=== PATIENT | female | born 1940 | race Caucasian/White ===

== ENCOUNTER 2016-06-28 11:26 | Emergency (ER) | payer OTHER ==
[~2016-06-28] VITALS: Ht 160 cm; Wt 90.7 kg
[~2016-06-28 11:26] MED LIST: BISOPROLOL-HCT1 EACH PO; COUMADIN5 M2 PO; CRESTOR10 M1 PO; CYMBALTA60 M1 PO; FERROUS SULFAT325 M3 PO; HYDROCODON-ACE1 EAC2 PO; LEVOTHYROXINE112 MCG PO; LOSARTAN-HCTZ1 EACH PO; LUMIGAN2.5 ML OPH; PRADAXA150 M1 PO; REMERON15 M2 PO; VOLTAREN100 GM TOP
--- NOTE | 2016-06-28 11:54 | ED NECK/BACK PAIN COMPLAINT ---
History of Present Illness General Chief Complaint: Low Back Pain/Injury Stated Complaint: BACK PAIN Source: patient, old records Exam Limitations: no limitations Vital Signs & Intake/Output Vital Signs & Intake/Output Vital Signs Date Time Temp Pulse Resp B/P Pulse O2 O2 Flow FiO2 Ox Delivery Rate 06/28 1142 Room Air 06/28 1130 95.8 111 20 123/78 96 Room Air Allergies Coded Allergies: NO KNOWN ALLERGIES (02/03/16) Reconcile Medications Bimatoprost (Lumigan) 2.5 ML DROPS 1 GTT OPH QPM BOTH EYES - GLAUCOMA ( Reported) Bisoprolol Fumarate/Hctz (Bisoprolol-Hctz 2.5-6.25 MG Tb) 1 EACH TABLET 1 TAB PO DAILY BP (Reported) Clonazepam 0.5 MG TABLET 1 TAB PO BID ANXIETY (Reported) Dabigatran Etexilate Mesylate (Pradaxa 150 MG) 150 MG CAPSULE 1 CAP PO BID BLOOD THINNER (Reported) Duloxetine HCl (Cymbalta) 60 MG CAPSULE.DR 1 CAP PO DAILY DEPRESSION ( Reported) Ferrous Sulfate 325 MG TABLET 1 TAB PO DAILY SUPPLEMENT (Reported) Hydrocodone/Acetaminophen (Hydrocodon-Acetaminophen 5-325) 1 EACH TABLET 1 TAB PO PRN PAIN (Reported) Levothyroxine Sodium 112 MCG TABLET 1 TAB PO DAILY THYROID (Reported) Losartan/Hydrochlorothiazide (Losartan-Hctz 100-12.5 MG Tab) 1 EACH TABLET 1 TAB PO QPM BP (Reported) Mirtazapine (Remeron) 15 MG TABLET 1 TAB PO DAILY UNKNOWN (Reported) Prednisone 10 MG TABLET 0 PO DAILY INFLAMMATION/BACK PAIN 4 TABS PO DAILY ON DAY 1, THEN DECREASE BY 1 TAB(10MG) DAILY FOR 4 DAYS. Rosuvastatin Calcium (Crestor) 10 MG TABLET 1 TAB PO DAILY CHOLESTEROL ( Reported) Warfarin Sodium (Coumadin) 5 MG TABLET 1 TAB PO DAILY anticoagulation goal inr 2-3 Triage Note: PT TO ED C/O LOW BACK PAIN SINCE SATURDAY. WORSE LAST NIGHT PER PT. TOOK VICODIN AT 1000 TODAY. HAS BEEN USING HEAT WITH SOME RELIEF. DENIES INJURY/FALL. PT STATES PAIN RADIATES TO B/L HIPS. Triage Nurses Notes Reviewed? yes HPI: Patient is a 76 year old female with history of chronic back pain, presents complaining of severe back pain onset yesterday evening. Patient reports that she was sleeping, the pain awoke her from sleep. Pain is a sharp pain, feels different from her previous chronic pain. Pain was severe at home, took a Vicodin and pain is currently 3/10. Pain briefly radiated down her right lower extremity last night, none since the 1 episode. denies any recent trauma or known inciting injury, incontinence, numbness, abdominal pain, fevers, rashes. (IVIS JAFFE) Past History Travel History Traveled to [place] past 21 day No Medical History Any Pertinent Medical History? 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 No (IVIS JAFFE) Review of Systems Review of Systems Constitutional: Reports: no symptoms. Respiratory: Reports: no symptoms. Cardiovascular: Denies: chest pain. Gastrointestinal/Abdominal: Denies: abdominal pain. Musculoskeletal: Reports: see HPI, back pain. Skin: Reports: no symptoms. Neurological/Psychological: Denies: headache, numbness, paresthesia. (IVIS JAFFE) Physical Exam Physical Exam General Appearance: well developed/nourished, alert, awake Head: atraumatic, normal appearance Eyes: Bilateral: normal appearance. Ears, Nose, Throat, Mouth: hearing grossly normal Neck: normal inspection, supple, full range of motion, no midline tenderness Respiratory: normal breath sounds, chest non-tender, no respiratory distress, lungs clear Cardiovascular: regular rate/rhythm Peripheral Pulses: 2+ dorsalis pedis (R), 2+ dorsalis pedis (L) Gastrointestinal: soft, non-tender Back: normal inspection, normal range of motion, midline lumbar and bilateral paraspinal tenderness Extremities: non-tender, normal range of motion Straight Leg Raising: Right: Negative. Left: Negative. DTR: Patellar: 2: L4 Right, L4 Left. Neurologic/Psych: no motor/sensory deficits, awake, alert, oriented x 3, normal gait, normal mood/affect (IVIS JAFFE) Progress Differential Diagnosis: AAA, aortic dissection, cauda equina syn, herniated disc , myofascial strain, pyelo/UTI, sciatica, spinal cord inj, T/L spine injury, ureterolithiasis Plan of Care: Orders Procedure Date/time Status CT LUMB SPINE WO IV CONTRAST 06/28 1210 Active Patient declined pain medication on initial exam. 06/28/2016 12:40:06 PM: Discussed with and seen by Dr. Steve 06/28/2016 1:24:39 PM: Results of CT scan discussed with patient. No acute red flags on exam, does not appear to require emergent MRI imaging. Patient appears stable for discharge and outpatient follow-up. (IVIS JAFFE) Diagnostic Imaging: Viewed by Me: CT Scan. Discussed w/RAD: CT Scan. Radiology Impression: PATIENT: ANDREW DUBOSE PRESENT AGE: 76 PATIENT ACCOUNT NO: [id number] : 40 LOCATION: [facility] ORDERING PHYSICIAN: IVIS PITTS SERVICE DATE: 06/28/16-0 EXAM TYPE: CAT - CT LUMB SPINE WO IV CONTRAST EXAMINATION: CT LUMBAR SPINE WITHOUT CONTRAST CLINICAL INFORMATION: Fracture. Severe midline lumbar pain. COMPARISON: CT scan of the abdomen and pelvis March 2013. X-ray lumbar sacral spine December 2012. TECHNIQUE: Helical non-contrast CT images were obtained through the lumbar spine and 1.25 and 2.5 mm axial reconstructions were reviewed along with sagittal and coronal MPRs. DLP: 1142 mGy-cm FINDINGS: There is a stable mild convex left curvature of the lumbar sacral spine likely related to the asymmetric prominent degenerative disc changes most prominent on the right at the L3-L4 level. The vertebral bodies are otherwise normally aligned. There is no fracture. Multilevel degenerative disc changes most prominent at L3-L4 as noted above. SPINAL LEVELS: T12-L1: Mild degenerative disc changes without significant narrowing in the central canal or neural foramina. L1-L2: Mild degenerative disc change with minimal bulging of the disc without significant narrowing the central canal or neural foramina. Mild bilateral facet arthrosis. L2-L3: Mild degenerative disc change with minimal endplate osteophytes and bulging of the disc but without any significant narrowing the central canal or neural foramina. Mild bilateral facet arthrosis. L3-L4: [id number] degenerative disc changes more prominent on the right than left as noted above. There is associated generalized bulging of the disc. There is mild bilateral facet arthrosis. These degenerative changes result in mild narrowing of the neural foramina bilaterally and mild narrowing of the central canal. The disc osteophyte complex formation also likely indents on the traversing right L4 nerve root in the right lateral recess L4-L5: There is severe bilateral facet arthrosis. There is a generalized bulging of the disc. These degenerative changes result in mild narrowing of the central canal and neural foramina bilaterally. L5-S1: There is severe left facet arthrosis and mild right facet arthrosis. There is degenerative disc change with vacuum disc phenomenon (air within the disc). Endplate osteophytes noted. These degenerative changes result in mild narrowing of the central canal neural foramina bilaterally. ADDITIONAL FINDINGS: Prominent arterial calcification throughout the aorta. Multiple cysts in the left kidney measuring up to 3.1 cm. Large cyst in the right kidney partially visualized. These are unchanged. IMPRESSION: No fracture or acute abnormality. Multilevel spondylosis of lumbar sacral spine resulting in varying degrees of narrowing the central canal neural foramina detailed above. This appears unchanged when compared with the prior CT examination March 2013. The degenerative changes are most prominent at the L3-L4 level where this results in mild narrowing of the central canal neural foramina with possible indentation on the traversing right L4 nerve root in the right lateral recess. DICTATED BY: COMPA DURON MD DATE/TIME DICTATED:06/28/161245 DIRECTOR E LEARNING: ANA M DATE/TIME TRANSCRIBED:06/28/161245 CONFIDENTIAL, DO NOT COPY WITHOUT APPROPRIATE AUTHORIZATION. <Electronically signed in Other Vendor System> SIGNED BY: COMPA DURON MD 06/28/16 1317 (IVIS JAFFE) Departure Departure Time of Disposition: 132 Disposition: HOME OR SELF CARE Condition: Stable Clinical Impression Primary Impression: Low back pain Qualifiers: Chronicity: acute Back pain laterality: bilateral Sciatica presence : unspecified whether sciatica present Qualified Code: M54.5 - Low back pain Secondary Impressions: Lumbar radiculopathy, acute Referrals: GLO BEE,SHERLY (PCP/Family) KIRA BEE,CALIN Additional Instructions: Take your Vicodin as previously directed. Rest, apply heat to the affected areas for 20 minutes 4-5 times a day. 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 Return to the emergency department if numbness, weakness, incontinence, pain uncontrollable, or worsening of symptoms. Departure Forms: Customer Survey General Discharge Information Prescriptions: Current Visit Scripts Prednisone 0 PO DAILY #10 TAB 4 TABS PO DAILY ON DAY 1, THEN DECREASE BY 1 TAB(10MG) DAILY FOR 4 DAYS. (KHUSHBU PITTS,IVIS) PA/SENIOR CHEMICAL PROCESS ENGINEER Co-Sign Statement Statement: ED Attending supervision documentation- [x] I saw and evaluated the patient. I have also reviewed all the pertinent lab results and diagnostic results. I agree with the findings and the plan of care as documented in the PA's/SENIOR CHEMICAL PROCESS ENGINEER's documentation. [] I have reviewed the ED Record and agree with the PA's/SENIOR CHEMICAL PROCESS ENGINEER's documentation. [] Additions or exceptions (if any) to the PAs/SENIOR CHEMICAL PROCESS ENGINEER's note and plan are summarized below: [] (COLBY BEE,LIZZIE Mckenzie)
[2016-06-28] MEDS ORDERED: CLONAZEPAM0.5 M2 PO (12:00)
[2016-06-28] MEDS ORDERED: PRADAXA150 M1 PO (12:02)
--- NOTE | 2016-06-28 13:17 | CT SCAN REPORT ---
EXAMINATION: CT LUMBAR SPINE WITHOUT CONTRAST CLINICAL INFORMATION: Fracture. Severe midline lumbar pain. COMPARISON: CT scan of the abdomen and pelvis March 2013. X-ray lumbar sacral spine December 2012. TECHNIQUE: Helical non-contrast CT images were obtained through the lumbar spine and 1.25 and 2.5 mm axial reconstructions were reviewed along with sagittal and coronal MPRs. DLP: 1142 mGy-cm FINDINGS: There is a stable mild convex left curvature of the lumbar sacral spine likely related to the asymmetric prominent degenerative disc changes most prominent on the right at the L3-L4 level. The vertebral bodies are otherwise normally aligned. There is no fracture. Multilevel degenerative disc changes most prominent at L3-L4 as noted above. SPINAL LEVELS: T12-L1: Mild degenerative disc changes without significant narrowing in the central canal or neural foramina. L1-L2: Mild degenerative disc change with minimal bulging of the disc without significant narrowing the central canal or neural foramina. Mild bilateral facet arthrosis. L2-L3: Mild degenerative disc change with minimal endplate osteophytes and bulging of the disc but without any significant narrowing the central canal or neural foramina. Mild bilateral facet arthrosis. L3-L4: [id number]-[id number]-ldnwko degenerative disc changes more prominent on the right than left as noted above. There is associated generalized bulging of the disc. There is mild bilateral facet arthrosis. These degenerative changes result in mild narrowing of the neural foramina bilaterally and mild narrowing of the central canal. The disc osteophyte complex formation also likely indents on the traversing right L4 nerve root in the right lateral recess L4-L5: There is severe bilateral facet arthrosis. There is a generalized bulging of the disc. These degenerative changes result in mild narrowing of the central canal and neural foramina bilaterally. L5-S1: There is severe left facet arthrosis and mild right facet arthrosis. There is degenerative disc change with vacuum disc phenomenon (air within the disc). Endplate osteophytes noted. These degenerative changes result in mild narrowing of the central canal neural foramina bilaterally. ADDITIONAL FINDINGS: Prominent arterial calcification throughout the aorta. Multiple cysts in the left kidney measuring up to 3.1 cm. Large cyst in the right kidney partially visualized. These are unchanged. IMPRESSION: No fracture or acute abnormality. Multilevel spondylosis of lumbar sacral spine resulting in varying degrees of narrowing the central canal neural foramina detailed above. This appears unchanged when compared with the prior CT examination March 2013. The degenerative changes are most prominent at the L3-L4 level where this results in mild narrowing of the central canal neural foramina with possible indentation on the traversing right L4 nerve root in the right lateral recess.
[2016-06-28] MEDS ORDERED: PREDNISONE10 M2 PO (13:27)
[2016-06-28 13:38] VITALS: BP 117/64
== END 2016-06-28 13:39 ==
LOC: ERH 11:26
DX: M54.5 Low back pain (principal); M54.16 Radiculopathy, lumbar region

== ENCOUNTER 2016-11-05 20:12 | Inpatient (IN) | payer OTHER ==
[~2016-11-05] VITALS: Ht 157.5 cm; Wt 86.2 kg
[~2016-11-05 20:12] MED LIST changes: +CLONAZEPAM0.5 M2 PO; +PREDNISONE10 M2 PO
--- NOTE | 2016-11-05 20:18 | NUR ---
PT TO [facility] FOR EKG.
--- NOTE | 2016-11-05 20:22 | NUR ---
PT TO TRIAGE WITH C/O SOB xFEW MONTHS AND EPIGASTRIC PAIN. PT DENIES CHEST PAIN, DENIES N/V/D,URINARY S/S. VSS. HX OF HTN,AFIB,HYPOTHYROID, HIGH CHOL.
--- NOTE | 2016-11-05 20:54 | ED DYSPNEA/ASTHMA COMPLAINT ---
History of Present Illness General Chief Complaint: Dyspnea (COPD, CHF, Other) Stated Complaint: SOB X 3 MONTHS Source: patient, old records Exam Limitations: no limitations Vital Signs & Intake/Output Vital Signs & Intake/Output Vital Signs Date Time Temp Pulse Resp B/P B/P Pulse O2 O2 Flow FiO2 Mean Ox Delivery Rate 11/06 1737 98.0 84 20 120/76 97 Room Air 11/06 1657 97.1 84 18 110/65 99 11/06 1230 98.4 88 18 132/63 96 Room Air 11/06 1225 98.4 88 18 132/63 96 Room Air 11/06 0944 98.4 78 18 129/73 11/06 0841 98 Room Air 11/06 0759 98.2 85 18 115/55 99 Room Air 11/06 0742 98.2 85 18 115/55 99 Room Air 11/06 0544 97.8 79 17 122/74 96 Room Air 11/06 0230 98 Room Air 11/05 2151 97.1 83 18 115/66 97 Room Air ED Intake and Output 11/06 0000 11/05 1200 Intake Total 0 Output Total Balance 0 Intake, Oral 0 Patient 190 lb Weight Weight Reported by Patient Measurement Method Allergies Coded Allergies: NO KNOWN ALLERGIES (02/03/16) Reconcile Medications Bimatoprost (Lumigan) 2.5 ML DROPS 1 GTT OPH QPM BOTH EYES - GLAUCOMA ( Reported) Bisoprolol Fumarate/Hctz (Bisoprolol-Hctz 2.5-6.25 MG Tb) 1 EACH TABLET 1 TAB PO DAILY BP (Reported) Dabigatran Etexilate Mesylate (Pradaxa 150 MG) 150 MG CAPSULE 1 CAP PO BID BLOOD THINNER (Reported) Duloxetine HCl (Cymbalta) 60 MG CAPSULE.DR 1 CAP PO DAILY DEPRESSION ( Reported) Ferrous Sulfate 325 MG TABLET 1 TAB PO DAILY SUPPLEMENT (Reported) Hydrocodone/Acetaminophen (Hydrocodon-Acetaminophen 5-325) 1 EACH TABLET 1 TAB PO PRN PAIN (Reported) Levothyroxine Sodium 112 MCG TABLET 1 TAB PO DAILY THYROID (Reported) Losartan/Hydrochlorothiazide (Losartan-Hctz 100-12.5 MG Tab) 1 EACH TABLET 1 TAB PO QPM BP (Reported) Mirtazapine 30 MG TABLET 1 TAB PO QPM MENTAL HEALTH (Reported) Rosuvastatin Calcium (Crestor) 10 MG TABLET 1 TAB PO DAILY CHOLESTEROL ( Reported) Triage Note: PT TO TRIAGE WITH C/O SOB xFEW MONTHS AND EPIGASTRIC PAIN. PT DENIES CHEST PAIN, DENIES N/V/D,URINARY S/S. VSS. HX OF HTN,AFIB,HYPOTHYROID, HIGH CHOL. Triage Nurses Notes Reviewed? yes Onset: Gradual Duration: worse persistent since (TWO DAYS), FEW MONTHS Timing: recent history Severity: moderate, severe Activities at Onset: activity Associated Symptoms: DYSPNEA, PALPITATIONS HPI: 76 year old female presents with worsening shortness of breath for the past several months, being evaluated by pcp and with outpatient statistics manager, presents with worsening sob. Evaluation of CT chest angiogram in September and nuclear stress test in the past few months which patietn reports is normal. Past History Travel History Traveled to [place] past 21 day No Medical History Any Pertinent Medical History? 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 No Review of Systems Review of Systems Constitutional: Denies: chills, fever. EENTM: Reports: no symptoms. Respiratory: Reports: short of breath (with exertion). Denies: cough. Cardiovascular: Denies: chest pain. GI: Reports: no symptoms. Genitourinary: Reports: no symptoms. Musculoskeletal: Reports: no symptoms. Skin: Reports: no symptoms. Neurological/Psychological: Reports: no symptoms. Hematologic/Endocrine: Denies: bruising, bleeding, polyuria, polydipsia. Immunologic/Allergic: Reports: no symptoms. All Other Systems: Reviewed and Negative Physical Exam Physical Exam General Appearance: well developed/nourished, alert, awake, anxious, mild distress, moderate distress, obese Head: atraumatic, normal appearance Eyes: Bilateral: normal appearance, PERRL, EOMI. Ears, Nose, Throat: normal pharynx, normal ENT inspection, hearing grossly normal Neck: normal inspection, supple, full range of motion Respiratory: normal breath sounds, chest non-tender, respiratory distress (WITH AMBULATION) Cardiovascular: irregularly irregular Peripheral Pulses: 2+ radial (R), 2+ radial (L) Gastrointestinal: normal bowel sounds, soft, non-tender Extremities: normal inspection, normal capillary refill, normal range of motion, swelling (TRACE BILATERAL) Neurologic/Psych: no motor/sensory deficits, awake, alert, oriented x 3 Skin: intact, normal color, warm/dry Core Measures ACS in differential dx? Yes ASA ordered for poss ACS? No-ACS ruled out Severe Sepsis Present: No Septic Shock Present: No Progress Differential Diagnosis: AMI, CHF, COPD, pulmonary embolism, pneumonia, cor pulmonale, pulmonary HTN Plan of Care: Orders Procedure Date/time Status HEPATIC FUNCTION PANEL 11/07 06 Active CBC WITHOUT DIFFERENTIAL 11/07 06 Active Heart Healthy Diet 11/06 L Active Nothing by Mouth 11/06 B Complete TROPONIN LEVEL 11/06 09 Complete EKG 11/06 0900 Active HEPATITIS PANEL 11/06 0856 Complete Change service to 11/06 0729 Active ECHOCARDIOGRAM 11/06 06 Active TROPONIN LEVEL 11/06 0311 Complete EKG 11/06 0311 Active Teach/Educate 11/06 0237 Active Pain Treatment and Response 11/06 0237 Active Nutritional Intake, Monitor 11/06 0237 Active Isolation 11/06 0237 Active Patient Care Conference 11/06 0237 Active Activity/Ambulation 11/06 0237 Active Patient Data 11/06 0103 Active PT Evaluate & Treat 11/06 UNK Active Lab Add-on Test 11/06 UNK Active CULTURE,URINE 11/05 2359 Active URINALYSIS 11/05 2359 Complete ED Holding Orders 11/05 2324 Active Admit to inpatient 11/05 2324 Active Vital Signs 11/05 2324 Active Code Status 11/05 2324 Active THYROID STIMULATING HORMONE 11/05 2101 Complete LIPASE 11/05 2101 Complete FREE T4 11/05 2101 Complete AMYLASE 11/05 2101 Complete Intake & Output 11/05 2100 Active Current Medications Sig/Mary Start time Last Medication Dose Stop Time Status Admin Mirtazapine 30 MG QPM 11/06 2200 AC 11/06 (Remeron) 2101 Atorvastatin Calcium 40 MG 1700 11/06 1700 CAN (Lipitor) Lorazepam 0.5 MG BID PRN 11/06 1615 AC 11/06 (Ativan) 11/13 1614 1621 Duloxetine HCl 60 MG DAILY 11/06 1000 AC 11/06 (Cymbalta) 0944 Hydrochlorothiazide 12.5 MG DAILY 11/06 1000 AC 11/06 (Hydrodiuril) 0944 Losartan Potassium 100 MG DAILY 11/06 1000 AC 11/06 (Cozaar) 0944 Levothyroxine Sodium 0.112 MG DAILY AC 11/06 0700 AC 11/06 (Synthroid) 0822 Dabigatran 150 MG BID 11/06 0400 AC 11/06 (PRADAXA) 2101 Laboratory Tests 11/06/16 0856: Troponin I 0.05, Hepatitis A IgM Ab NONREACTIVE, Hep Bs Antigen NONREACTIVE, Hep B Core IgM Ab Conf NONREACTIVE, Hepatitis C Antibody NONREACTIVE 11/06/16 0328: Troponin I 0.10 11/05/16 2355: Urinalysis LIGHT H, Urine Color DAILY, Urine Clarity CLDY H, Urine pH 6.0, Ur Specific [place] 1.025, Urine Protein 30 H, Urine Ketones NEG, Urine Nitrite NEG, Urine Bilirubin NEG@ICTO, Urine Urobilinogen 4.0 H, Ur Leukocyte Esterase NEG, Ur Microscopic SEDIMENT EXAMINED, Urine WBC 1-3 H, Ur Epithelial Cells MOD H, Urine Bacteria MOD H, Urine Mucus MOD H, Urine Hemoglobin NEG, Urine Glucose NEG Microbiology 11/05 2355 URINE ROUT: Urine Culture - RECD PATIENT AMBULATED IN THE ED WITHOUT DESATURATION, HOWEVER HEART RATE INCRASED TO 120'S AND PATIENT BECAME VERY WINDED AND HAD A HARD TIME BREATHING. WILL ADMIT PATIENT TO TELE[facility]Y [facility] HAVE PULMONARY CONSULTATION. (BALAJI BEE,DAVID) Diagnostic Imaging: Viewed by Me: Radiology Read. Discussed w/RAD: Radiology Read. CXR Impression: VPATIENT: ANDREW DUBOSE PRESENT AGE: 76 PATIENT ACCOUNT NO: [id number] : 40 LOCATION: [facility] ORDERING PHYSICIAN: DAVID CARPIO MD SERVICE DATE: 11/05/16 EXAM TYPE: RAD - XRY -CHEST XRAY, PA AND LATERAL EXAMINATION: XR CHEST CLINICAL INFORMATION: 76-year- old woman with shortness of breath. COMPARISON: 05/02/2011 chest radiograph TECHNIQUE: 2 views of the chest were obtained. FINDINGS: The lungs are mildly hyperexpanded. No focal consolidation or overt pulmonary edema is appreciated. Mild cardiomegaly is approximately stable. There are no pleural effusions. Degenerative changes are noted throughout the thoracic spine. IMPRESSION: No radiographic evidence of an acute cardiopulmonary process. DICTATED BY: RYAN GODDARD MD DATE/TIME DICTATED:11/05/162150 [employer] GROUP LEADER:ANA M DATE/TIME TRANSCRIBED:11/05/162150 CONFIDENTIAL, DO NOT COPY WITHOUT APPROPRIATE AUTHORIZATION. <Electronically signed in Other Vendor System> SIGNED BY: RYAN GODDARD MD 11/05/162154 Initial ED EKG: AFIB, nonspecific ST T wave chg Prior EKG: unchanged Rhythm Strip: atrial fibrillation Departure Departure Time of Disposition: 2323 Disposition: STILL A PATIENT Condition: Stable Clinical Impression Primary Impression: Afib Secondary Impressions: Dyspnea on exertion Referrals: SHERLY CODY MD (PCP/Family) Departure Forms: Customer Survey General Discharge Information Admission Note Spoke With: HATTIE SHERIDAN MD Documentation of Exam: Documentation of any treatments & extenuating circumstances including Concerns Regarding Discharge (functional status, medication knowledge or non-compliance, living conditions, etc.) that warrant an admission rather than observation: [ TELE MONITOR, RATE CONTROL, OBTAIN CT ANGIOGRAM RESULTS FROM [facility], OBTAIN ECHO AND CARDIAC STRESS REPORT FROM DR VENTURA OFFICE, CARDIOLOGY CONSULTATION, PULMONARY CONSULTATION Critical Care Note Critical Care Note Critical Care Time: non-applicable
--- NOTE | 2016-11-05 21:00 | NUR ---
SISTER AT BEDSIDE. PT CONVERSIVE, SMILING. STUDENT AT BEDSIDE TO EVAL PT
--- NOTE | 2016-11-05 21:04 | NUR ---
BLOOD DRAWN AND SENT TO LAB BY THIS [facility]. BLUE, SST, LAV, BERNABE
[2016-11-05 21:10] LABS: ABSOLUTE BASOPHIL COUNT 0 /CUMM (0.0-0.2); ABSOLUTE EOSINOPHIL COUNT 0.1 /CUMM (0.0-0.7); ABSOLUTE GRANULOCYTE CT 9.4 /CUMM (1.4-6.5); ABSOLUTE LYMPH COUNT 1.4 /CUMM (1.2-3.4); BASOPHIL % 0.3 % (0.0-2.0); EOSINOPHIL % 0.6 % (0-5); GRANULOCYTE % 79.3 % (42.2-75.2); HEMATOCRIT 38.7 % (37-47); MEAN CORPUSCULAR HGB 27.6 PG (27.0-31.0); MEAN CORPUSCULAR HGB CONC 32.7 G/DL (33.0-37.0); MEAN CORPUSCULAR VOLUME 84.5 FL (81.0-99.0); MEAN PLATELET VOLUME 8.8 FL (7.4-10.4); PLATELET COUNT 246 /CUMM (130-400); RBC DISTRIBUTION WIDTH 15.8 % (11.5-14.5); RED BLOOD CELL CT 4.58 /CUMM (4.20-5.40); WHITE BLOOD CELL COUNT 11.8 /CUMM (4.8-10.8)
[2016-11-05 21:24] LABS: PT 15.5 SEC (9.4-12.5)
--- NOTE | 2016-11-05 21:54 | NUR ---
DR CARPIO AT BEDSIDE TO JESSI PT
--- NOTE | 2016-11-05 21:55 | RADIOLOGY REPORT ---
EXAMINATION: XR CHEST CLINICAL INFORMATION: 76-year-old woman with shortness of breath. COMPARISON: 05/02/2011 chest radiograph TECHNIQUE: 2 views of the chest were obtained. FINDINGS: The lungs are mildly hyperexpanded. No focal consolidation or overt pulmonary edema is appreciated. Mild cardiomegaly is approximately stable. There are no pleural effusions. Degenerative changes are noted throughout the thoracic spine. IMPRESSION: No radiographic evidence of an acute cardiopulmonary process.
[2016-11-05 22:00] LABS: PTT 83 SEC (25-37)
--- NOTE | 2016-11-05 22:10 | NUR ---
WALKED WITH PT APPROXIMATELY 80 FEET. 02 SAT RANGED FROM 96-98% ON ROOM AIR. NOTED THAT PULSE INCREASED FROM HIGH 80'S TO 120 AND WENT BACK DOWN UPON RETURING TO BED.
[2016-11-05] MEDS ORDERED: MIRTAZAPINE30 M2 PO (22:44)
--- NOTE | 2016-11-05 23:09 | NUR ---
DR CARPIO AT BESIDE TO [facility] PT, DISCUSS POC. PT TO BE ADMITTED
--- NOTE | 2016-11-06 00:52 | History & Physical ---
IVIS MENDOZA MD 11/06/16 0051: General Information and HPI MD Statement: I have seen and personally examined ANDREW DUBOSE and documented this H&P. The patient is a 76 year old F who presented with a patient stated chief complaint of dyspnea. Source of Information: patient Exam Limitations: no limitations History of Present Illness: 76 year old female with past medical history of hypertension, hyperlipidemia, hypothyroidism, and atrial fibrillation on pradaxa presents with acute on chronic dyspnea. Patient states that she has been feeling increasing short of breath for the past three months. She has seen her labor/excavator Dr. Aldridge as an outpatient and underwent a chest CTA that per the patient was negative. The patient suddenly this evening after coming out of the shower felt extremely dyspneic, laid down, put on a home pulse oximeter that read HR 180 Spo2 75% then she presented to the ED. She denies any chest pain, palpitations, cough, sputum production, fevers, chills, weight loss, and nausea. She reports night sweats and chronic abdominal pain, epigastric, non radiating, sharp in nature that comes and goes, not associated with exertion or meals and not exacerbated or relieved by anything. She has never used supplemental oxygen and quit smoking approximately 30 years ago. Allergies/Medications Allergies: Coded Allergies: NO KNOWN ALLERGIES (02/03/16) Home Med list Bimatoprost (Lumigan) 2.5 ML DROPS 1 GTT OPH QPM BOTH EYES - GLAUCOMA ( Reported) Bisoprolol Fumarate/Hctz (Bisoprolol-Hctz 2.5-6.25 MG Tb) 1 EACH TABLET 1 TAB PO DAILY BP (Reported) Dabigatran Etexilate Mesylate (Pradaxa 150 MG) 150 MG CAPSULE 1 CAP PO BID BLOOD THINNER (Reported) Duloxetine HCl (Cymbalta) 60 MG CAPSULE.DR 1 CAP PO DAILY DEPRESSION ( Reported) Ferrous Sulfate 325 MG TABLET 1 TAB PO DAILY SUPPLEMENT (Reported) Hydrocodone/Acetaminophen (Hydrocodon-Acetaminophen 5-325) 1 EACH TABLET 1 TAB PO PRN PAIN (Reported) Levothyroxine Sodium 112 MCG TABLET 1 TAB PO DAILY THYROID (Reported) Losartan/Hydrochlorothiazide (Losartan-Hctz 100-12.5 MG Tab) 1 EACH TABLET 1 TAB PO QPM BP (Reported) Mirtazapine 30 MG TABLET 1 TAB PO QPM MENTAL HEALTH (Reported) Rosuvastatin Calcium (Crestor) 10 MG TABLET 1 TAB PO DAILY CHOLESTEROL ( Reported) Compliance With Home Meds: GOOD Past History Travel History Traveled to [place] past 21 day No Medical History Neurological: NONE EENT: NONE Cardiovascular: AFIB, hypertension, hyperlipidemia, MITRAL VALVE PROLAPSE Respiratory: NONE Gastrointestinal: GERD Hepatic: NONE Renal: NONE Musculoskeletal: ARTHRITIS Psychiatric: NONE Endocrine: hypothyroidism Blood Disorders: NONE Cancer(s): NONE CLOTHING MAN/Reproductive: NONE History of MRSA: No History of VRE: No History of CDIFF: No Surgical History Surgical History: hysterectomy, PARATHYROOIDECTOMY L THUMB RECONSTRUCTION Past Family/Social History Functional Ability ADLs Independent: dressing, eating, toileting, bathing. Ambulation: independent IADLs Independent: shopping, housework, finances, food prep, telephone, transportation , medication admin. Review of Systems Review of Systems Constitutional: Reports: see HPI. Exam & Diagnostic Data Last 24 Hrs of Vital Signs/I&O Vital Signs Date Time Temp Pulse Resp B/P B/P Pulse O2 O2 Flow FiO2 Mean Ox Delivery Rate 11/06 0051 97.2 59 18 95/55 97 Nasal 2.0L Cannula 11/05 2150 97.1 83 18 115/66 97 Room Air 11/05 2057 95 Room Air 11/06 2023 97.4 74 20 146/92 95 Room Air Intake & Output 11/06 0800 11/06 0000 11/05 1600 Intake Total 0 Output Total Balance 0 Intake, Oral 0 Patient 190 lb Weight Weight Reported by Patient Measurement Method Physical Exam General Appearance Alert, Oriented X3, Cooperative, No Acute Distress Skin No Rashes, No Breakdown Skin Temp/Moisture Exam: Warm/Dry HEENT Atraumatic, PERRLA, EOMI, Mucous Membr. moist/pink Neck Supple, No JVD, +2 Carotid Pulse wo Bruit Cardiovascular No Murmurs, irregular rate Lungs Clear to Auscultation, Normal Air Movement Abdomen Normal Bowel Sounds, Soft, No Tenderness, No Masses Neurological Normal Speech, Strength at 5/5 X4 Ext, Normal Tone Extremities No Edema, Normal Pulses Last 24 Hrs of Labs/Sreedahr: Laboratory Tests 11/05/16 8835: Urinalysis LIGHT H, Urine Color DAILY, Urine Clarity CLDY H, Urine pH 6.0, Ur Specific [place] 1.025, Urine Protein 30 H, Urine Ketones NEG, Urine Nitrite NEG, Urine Bilirubin NEG@ICTO, Urine Urobilinogen 4.0 H, Ur Leukocyte Esterase NEG, Ur Microscopic SEDIMENT EXAMINED, Urine WBC 1-3 H, Ur Epithelial Cells MOD H, Urine Bacteria MOD H, Urine Mucus MOD H, Urine Hemoglobin NEG, Urine Glucose NEG 11/05/16 2101: Anion Gap 14, Estimated GFR > 60, BUN/Creatinine Ratio 20.0, Glucose 133 H, Calcium 8.7, Total Bilirubin 1.0, AST 112 H, ALT 71 H, Alkaline Phosphatase 618 H, Troponin I < 0.01, Lvh-F-Uzsiujbmfez Pept 3260 H, Total Protein 6.8, Albumin 3.7, Globulin 3.1, Albumin/Globulin Ratio 1.2, PT 15.5 H, INR 1.48 H, APTT 83 H, CBC w Diff NO MAN DIFF REQ, RBC 4.58, MCV 84.5, MCH 27.6, RDW 15.8 H, MPV 8.8, Gran % 79.3 H, Lymphocytes % 11.4 L, Monocytes % 8.4, Eosinophils % 0.6, Basophils % 0.3, Absolute Granulocytes 9.4 H, Absolute Lymphocytes 1.4, Absolute Monocytes 1.0 H, Absolute Eosinophils 0.1, Absolute Basophils 0, PUBS MCHC 32.7 L Microbiology 11/05 2355 URINE ROUT: Urine Culture - RECD Diagnostic Data EKG Results atrial fibrillation, st depression and t wave inversion in lateral leads CXR Results no acute cardiopulm process Assessment/Plan Assessment: 76 year old female with past medical history of hypertension, hyperlipidemia, hypothyroidism, and atrial fibrillation on pradaxa presents with acute on chronic dyspnea 1. Dyspnea on exertion: elevated proBNP, cardiomegaly on CXR but no pleural effusions or pulmonary edema Check ambulatory spo2 Supplemental oxygen as necessary titrate to Spo2 >92% Monitor on telemetry Serial troponins/EKGs to rule out acute coronary syndrome Limited echocardiogram to reassess LVEF, wall motion abnormalities for increased symptoms x 3 months Cardiology consultation Obtain records for Chest CTA 2. Atrial fibrillation: Beta blockade needs to be substituted for rate control and pradaxa for anticoagulation 3. Hypertension: Continue losartan, HCTZ and change to equivalent dose beta josé miguel 4. Hyperlipidemia: Continue statin therapy 5. Epigastric Pain: elevated liver function tests Check amylase and lipase NPO for right upper quadrant ultrasound 6. Hypothyroidism: Continue synthroid 112mcg PO QD Pain Management: Continue cymbaltan and vicodin prn NPO for right upper quadrant ultrasound DVT ppx-on pradaxa Full code As Ranked By This Provider Problem List: 1. Afib 2. Dyspnea on exertion 3. Hypertension Core Measures/Miscellaneous Acute Coronary Syndrome ACS Diagnosis: No Cerebrovascular Accident CVA/TIA Diagnosis: No Congestive Heart Failure CHF Diagnosis: No VTE (View Protocol) VTE Risk Factors: Acute medical illness, Age > 40 No [facility] V[facility] prophylaxis d/t: No contraindications No VTE Pharm Prophylaxis d/t: No contraindications VTE Diagnosis: No VTE Type: NONE VTE Confirmed by (Test): NONE Sepsis (View Protocol) Severe Sepsis Present: No Septic Shock Septic Shock Present: No Miscellaneous Documentation Attending Case Discussed With: HATTIE SHERIDAN MD Primary Care Physician: SHERLY CODY MD Patient sees these Specialists cardiology Level of Patient Care: Telemetry RACHEL JEROME 11/06/16 0318: Resident Review Statement Resident Statement: examined this patient, discussed with international first officer, agreed with international first officer Other Findings: Patient is an 6-year-old female with past medical history significant for hypertension, hypothyroidism, dyslipidemia, obstructive sleep apnea and atrial fibrillation on Peridex came with chief complaint of worsening shortness of breath, tachycardia and hypoxia this evening. According to her she was very short of breath for last 3 months and her shortness of breath is progressively worsening day by day. She was seen by Dr. HOBBS and was ruled out for pulmonary embolism with outpatient CTA. According to patient after taking a shower this evening she was so short of breath and check her oxygen saturation on pulse ox and she was in 70s and also her heart rate was in 180s that warranted her to come to ER. In ER her oxygen saturation was fine but she was tachycardic to 140s on ambulation. She denied any chest pain, palpitations, fever, chills, night sweats but admits for having off and on epigastric pain but no dilatation with exertion or intake. She denied any urinary or bowel complaints. Vital signs on admission temperature 97.4, pulse 74, respiratory rate 20, blood pressure 146/92 and she was saturating 95% on room air. Labs were WBC count 11.8, hemoglobin 12.7, hematocrit 38.7, platelet 246, INR 1.48, sodium 137, potassium 4.0, BUNs 14, creatinine 0.7, AST 112, AST 71, alkaline phosphatase 618, pro BNP 3260, troponins negative, CHEST x-ray negative for any cardiopulmonary pathology EKG showed ST depression in chest leads V3 4 and 5 and some T-wave inversions Physical examination Alert and oriented 3 Head atraumatic Neck supple no JVD Chest clear to auscultate Heart S1 and S2 normal, irregularly irregular heart rate, no added sounds Abdomen soft with no organomegaly, nontender Extremities showed no cyanosis or edema No neurological deficit noted Assessment and plan 76-year-old female with history of atrial fibrillation on anticoagulation, hypertension, dyslipidemia and hypothyroidism came with worsening shortness of breath, hypoxia and tachycardia at home and found to have ST depression in chest leads with negative troponins and tachycardia on ambulation. We will admit patient on telemetry floor and will address problem problems 1. Worsening shortness of breath could be due to underlying right heart failure versus pulmonary pathology 2. EKG changes we'll rule out ACS 3. History of hypertension 4. History of hypothyroidism 5. History of dyslipidemia 6. History of off and on epigastric pain with transaminitis Plan 1. Telemetry monitoring 2. We'll trend troponins and EKGs 3. Cardiology evaluation in a.m. 4. Due to worsening shortness of breath we willconsider repeating echocardiogram 5. Records from her labor/excavator's office 6. Patient is on to combination pills for her blood pressure. We will continue home dose of losartan and HCTZ but our pharmacy doesn't carry bisoprolol we will confirm with cardiology if he could change it to metoprolol and conversion dose of metoprolol if needed. 7. We'll check ambulatory pulse ox 8. Right upper quadrant ultrasound to rule out any intra-hepatic/biliary pathology 9. We'll check serum amylase and lipase 10. Supplemental oxygen to keep oxygen saturation more than 90% if needed Patient is full code Pharmacological DVT prophylaxis We will keep patient nothing by mouth for now for right upper quadrant ultrasound HATTIE SHERIDAN 11/06/16 0527: Attending MD Review Statement Attending Statement Attending MD Statement: examined this patient, discuss w/resident/PA/FIXED INCOME DIRECTOR, agreed w/resident/PA/FIXED INCOME DIRECTOR, reviewed EMR data (avail), reviewed images, amended to note Attending Assessment/Plan: CC : Acute worsening of shortness of breath PMH: A. fib, hypothyroidism, HTN, HLD Patient is being investigated outpatient for her progressively worsening of shortness of breath by her labor/excavator. Patient says that she is getting dyspnea on exertion progressively worsening since [place], no abnormality found so far. Today patient noticed severe worsening of shortness of breath after taking shower, checked her pulse on home pulse ox where her pulse was 18 days and hopes O2 saturation 70s so she came to ER. Patient denies any chest pain or chest tightness, on and off leg swellings, PND or orthopnea. Patient gets drenching night sweats. Currently she has epigastric and right upper quadrant pain on and off. She has not been using her CPAP as she cannot sleep well with that and it may have grown mold inside. Vitals: Afebrile, pulse in 70s, RR 20, blood pressure 146/92, saturating well on room air. While in ER patient's heart rate goes up to 140s with minimal exertion. On exam: A O 3, cooperative, no acute distress, neck supple, JVD normal, no lymphadenopathy, mucosa moist, no focal neurological deficit, no dependent edema , no obvious skin rashes or inflammation CVS: S1-S2, irregular. RS: Clear to auscultate bilaterally. Abdomen: Soft, NT, ND, bowel sounds present. Labs: WBC 11.8, neutrophils 79%, BMP unremarkable, AST 112, ALT 71, alkaline phosphatase 618, proBNP 3260, INR 1.48, troponin less than 0.01, UA unremarkable EKG: A. fib questionable ST-T wave changes in lateral leads CXR: No radiographic evidence of an acute cardiopulmonary process. A and p 76-year-old female with above-mentioned past medical history came to ER with elevated heart rate and hypoxia with worsening of shortness of breath. Patient endorses worsening of shortness of breath gradually over the past few months but today had an acute episode where she could not catch her breath, her pulse was in 180s and oxygen dropped to 70s. Patient is under investigation outpatient for the symptoms, patient has symptoms only on exertion, no leg swelling, no JVD, no crackles on examination but proBNP is elevated chest x-ray is unremarkable. At this point this or typical symptoms patient should be ruled out for acute coronary syndrome and further evaluated for any silent VA interim. As patient is noncompliant with her CPAP, overnight hypoxia may be adding up the problem of cor pulmonale which should be ruled out. Patient also has intermittent epigastric pain and was found to have transaminitis with elevated alkaline phosphatase should be evaluated further for any gallbladder pathology. Patient is on Pradaxa, recently evaluated for PE with CTA, will hold off further exposure contrast or radiation to rule out PE. + Acute worsening of shortness of breath + History of A. fib with Intermittent RVR + Transaminitis + History of hypothyroidism, HTN, HLD - Admit on telemetry - Continuous telemetry monitoring - Serial EKG and troponin - 2-D echocardiogram - Obtain records from patient's cardiology - Cardiology consult in a.m. - Obtain lipase, right upper quadrant ultrasound - Patient would benefit from outpatient sleep study evaluation - Continue all her home medications - Check TSH, readjust levothyroxin accordingly - Pradaxa for DVT prophylaxis - Adequate pain control - OT PT evaluation
--- NOTE | 2016-11-06 03:35 | NUR ---
REPEAT TROP DRAWN AND SENT BY THIS MST.
--- NOTE | 2016-11-06 05:29 | Admission Certification ---
Admission Certification Certification Statement - As attending physician, I certify that at the time of - admission, based on clinical presentation, severity of - symptoms, need for further diagnostic testing and - therapeutic interventions, and risk of adverse outcomes - without in-hospital treatment, in my clinical assessment, - this patient requires an acute hospital stay for a minimum - of two nights or longer. I have also considered psychsocial - factors such as support system, advanced age, financial - issues, cognitive issues, and failed out-patient treatments, - past re-admission history, safety of patient, and lack of - compliance as applicable. Specific rationale supporting this admission is: A. fib with intermittent RVR, rule out heart failure
--- NOTE | 2016-11-06 07:22 | NUR ---
ASSUMED CARE OF PT. PT RESTING ON STRETCHER AT THIS TIME, AWOKEN FOR VITAL SIGNS. PT NOTED TO REMIAN IN A-FIB ON MONITOR. DENIES CHEST PAIN/SOB AT THIS TIME. SKIN WARM/DRY. PT OFFER NO COMPLAINTS, AWARE TO REMIAN NPO FOR ULTRASOUND.
--- NOTE | 2016-11-06 07:44 | NUR ---
PT TO US AT [facility] TIME
[2016-11-06 07:59] VITALS: BP 115/55
--- NOTE | 2016-11-06 08:22 | NUR ---
PT BACK FROM ULTRASOUND, PT MEDICATED PER EMAR AT THIS TIME.
--- NOTE | 2016-11-06 08:59 | NUR ---
TEREZA STAFF PAGED TO INFORM THAT CURRENT EKG IS IN THE CHART FOR REVIEW
--- NOTE | 2016-11-06 09:01 | NUR ---
REPEAT TROP DRAWN AND SENT TO THE LAB
--- NOTE | 2016-11-06 09:08 | ULTRASOUND REPORT ---
EXAMINATION: US ABDOMEN LIMITED CLINICAL INFORMATION: Epigastric pain.. COMPARISON: CT images of abdomen from 04/10/2013 TECHNIQUE: Real-time imaging of the right upper quadrant abdominal viscera. FINDINGS: PANCREAS: Normal. LIVER: Liver parenchyma appears diffusely hyperechoic -- a finding often due to steatosis. Within the liver, there are multiple solid, hypoechoic masses. One of the masses in the left lobe measured by the cath lab radiological technologist is 1.6 x 1.3 x 1.7 cm and one of the masses measured in the right lobe is 2 x 1.9 x 2.3 cm. GALLBLADDER: Normal. The gallbladder is physiologically distended without evidence of stones, sludge, polyps, wall thickening or pericholecystic fluid. COMMON BILE DUCT: Normal in caliber measuring 0.4 cm in diameter. RIGHT KIDNEY: The right kidney measures 12.5 cm in length and has normal cortical thickness and echotexture. No hydronephrosis or nephrolithiasis. 2.7 x 1.8 x 2.5 cm simple cortical cyst of the upper pole. At the mid to lower pole, there is a 8.5 x 8.2 x 8 cm simple cyst. FREE FLUID: None. IMPRESSION: 1. Findings consistent with metastatic disease of the liver (uncertain primary). Further workup is advised. 2. Gallbladder is normal. 3. The right kidney has simple cysts, one measuring up to 2.7 cm and another measuring up to 8.5 cm.
--- NOTE | 2016-11-06 10:42 | Cons- Cardiology ---
General Information and HPI Consulting Request Date of Consult: 11/06/16 Requested By: FRANK MONTGOMERY MD Reason for Consult: Atrial fibrillation and shortness of breath Source of Information: patient, old records Exam Limitations: no limitations History of Present Illness: The patient is a 76-year-old female with a history of persistent atrial fibrillation on Pradaxa, obstructive sleep apnea not using her CPAP, hypertension, who presents with increasing shortness of breath. The patient underwent a JASPREET cardioversion in 2013 but then reverted back to atrial fibrillation and has been rate controlled since. She is known to have chronic shortness of breath but noted worsening symptoms over the past few days specifically on the day of admission. She describes severe shortness of breath with minimal exertion but without chest discomfort. This therefore prompted her to come to the emergency room for evaluation. She was scheduled to see Dr. Castañeda on November 14 for consultation. Of note is that she recently had a nuclear stress test 09/18/2016 demonstrating normal LV function and no evidence for ischemia. Recent echocardiogram performed in July 2016 demonstrated ejection fraction of 60%, left atrial enlargement but no valvular abnormalities. She also had a recent Holter monitor demonstrating atrial fibrillation with controlled ventricular response. Allergies/Medications Allergies: Coded Allergies: NO KNOWN ALLERGIES (02/03/16) Home Med List: Bimatoprost (Lumigan) 2.5 ML DROPS 1 GTT OPH QPM BOTH EYES - GLAUCOMA ( Reported) Bisoprolol Fumarate/Hctz (Bisoprolol-Hctz 2.5-6.25 MG Tb) 1 EACH TABLET 1 TAB PO DAILY BP (Reported) Dabigatran Etexilate Mesylate (Pradaxa 150 MG) 150 MG CAPSULE 1 CAP PO BID BLOOD THINNER (Reported) Duloxetine HCl (Cymbalta) 60 MG CAPSULE.DR 1 CAP PO DAILY DEPRESSION ( Reported) Ferrous Sulfate 325 MG TABLET 1 TAB PO DAILY SUPPLEMENT (Reported) Hydrocodone/Acetaminophen (Hydrocodon-Acetaminophen 5-325) 1 EACH TABLET 1 TAB PO PRN PAIN (Reported) Levothyroxine Sodium 112 MCG TABLET 1 TAB PO DAILY THYROID (Reported) Losartan/Hydrochlorothiazide (Losartan-Hctz 100-12.5 MG Tab) 1 EACH TABLET 1 TAB PO QPM BP (Reported) Mirtazapine 30 MG TABLET 1 TAB PO QPM MENTAL HEALTH (Reported) Rosuvastatin Calcium (Crestor) 10 MG TABLET 1 TAB PO DAILY CHOLESTEROL ( Reported) Current Medications: Current Medications Sig/Mary Start time Last Medication Dose Route Stop Time Status Admin Atorvastatin Calcium 40 MG 1700 11/06 1700 AC PO Dabigatran 150 MG BID 11/06 0400 AC 11/06 PO 0944 Duloxetine HCl 60 MG DAILY 11/06 1000 AC 11/06 PO 0944 Hydrochlorothiazide 12.5 MG DAILY 11/06 1000 AC 11/06 PO 0944 Levothyroxine Sodium 0.112 MG DAILY AC 11/06 0700 AC 11/06 PO 0822 Losartan Potassium 100 MG DAILY 11/06 1000 AC 11/06 PO 0944 Mirtazapine 30 MG QPM 11/06 2200 AC PO Review of Systems Review of Systems: Eyes no blurred or double vision Ears no deafness or ringing Nose and throat no recurrent sinusitis Lungs per history of present illness Heart per history of present illness Abdomen no nausea vomiting Musculoskeletal occasional muscle and joint pains Psych no anxiety or depression Neuro without recurrent headache or seizures Endocrine no heat or cold intolerance Past History Travel History Traveled to [place] past 21 day No Medical History Neurological: NONE EENT: NONE Cardiovascular: AFIB, hypertension, hyperlipidemia, MITRAL VALVE PROLAPSE Respiratory: NONE Gastrointestinal: GERD Hepatic: NONE Renal: NONE Musculoskeletal: ARTHRITIS Psychiatric: NONE Endocrine: hypothyroidism Blood Disorders: NONE Cancer(s): NONE 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 Ambulation: independent IADLs Independent: shopping, housework, finances, food prep, telephone, transportation , medication admin. Exam & Diagnostic Data Vital Signs and I&O Vital Signs Date Time Temp Pulse Resp B/P B/P Pulse O2 O2 Flow FiO2 Mean Ox Delivery Rate 11/07 943 98.4 78 18 129/73 11/06 0841 98 Room Air 11/06 0759 98.2 85 18 115/55 99 Room Air 11/06 0742 98.2 85 18 115/55 99 Room Air 11/06 0544 97.8 79 17 122/74 96 Room Air 11/06 0230 98 Room Air 11/05 2150 97.1 83 18 115/66 97 Room Air 11/05 2057 95 Room Air 11/06 2023 97.4 74 20 146/92 95 Room Air Intake & Output 11/06 1600 11/06 0800 11/06 0000 11/05 1600 11/05 0811/05 0000 Intake Total 0 Output Total Balance 0 Intake, Oral 0 Patient 190 lb 190 lb Weight Weight Reported by Patient Reported by Patient Measurement Method Physical Exam: Patient is a well-developed well-nourished female appearing in no acute distress HEENT is unremarkable Neck is supple there is no JVD Lungs decreased air entry bilaterally Heart irregular rhythm S1 and S2 are normal no murmurs gallops or rubs Abdomen bowel sounds positive Extremities without edema Labs/Sreedhar Results: Laboratory Tests 11/06 11/06 11/05 0856 0328 2355 Chemistry Troponin I (< 0.11 ng/ml) Pending 0.10 Urines Urinalysis LIGHT H Urine Color (YEL,AMB,STR) DAILY Urine Clarity (CLEAR) CLDY H Urine pH (5.0 - 8.0) 6.0 Ur Specific [place] (1.001 - 1.035) 1.025 Urine Protein (NEG,<30 MG/DL) 30 H Urine Ketones (NEG) NEG Urine Nitrite (NEG) NEG Urine Bilirubin (NEG) NEG@ICTO Urine Urobilinogen (0.1 - 1.0 EU/dl) 4.0 H Ur Leukocyte Esterase (NEG) NEG Ur Microscopic SEDIMENT EXAMINED Urine WBC (0 - 2 /HPF) 1-3 H Ur Epithelial Cells (NONE,FEW) MOD H Urine Bacteria (NEG/NONE) MOD H Urine Mucus (FEW,NONE) MOD H Urine Hemoglobin (NEG) NEG Urine Glucose (N MG/DL) NEG 11/05 2100 Chemistry Sodium (137 - 145 mmol/L) 137 Potassium (3.5 - 5.1 mmol/L) 4.0 Chloride (98 - 107 mmol/L) 100 Carbon Dioxide (22 - 30 mmol/L) 23 Anion Gap (5 - 16) 14 BUN (7 - 17 mg/dL) 14 Creatinine (0.5 - 1.0 mg/dL) 0.7 Estimated GFR (>60 ml/min) > 60 BUN/Creatinine Ratio (7 - 25 %) 20.0 Glucose (65 - 99 mg/dL) 133 H Calcium (8.4 - 10.2 mg/dL) 8.7 Total Bilirubin (0.2 - 1.3 mg/dL) 1.0 AST (14 - 36 U/L) 112 H ALT (9 - 52 U/L) 71 H Alkaline Phosphatase (<127 U/L) 618 H Troponin I (< 0.11 ng/ml) < 0.01 Zqb-B-[id number] Pept (<125 pg/mL) 3260 H Total Protein (6.3 - 8.2 g/dL) 6.8 Albumin (3.5 - 5.0 g/dL) 3.7 Globulin (1.9 - 4.2 gm/dL) 3.1 Albumin/Globulin Ratio (1.1 - 2.2 %) 1.2 Amylase (30 - 110 U/L) 38 Lipase (23 - 300 U/L) 67 TSH (0.270 - 4.200 uIU/mL) 7.840 H Free T4 (0.78 - 2.44 ng/dL) 1.33 Coagulation PT (9.4 - 12.5 SEC) 15.5 H INR (0.90 - 1.19) 1.48 H APTT (25 - 37 SEC) 83 H Hematology CBC w Diff NO MAN DIFF REQ WBC (4.8 - 10.8 /CUMM) 11.8 H RBC (4.20 - 5.40 /CUMM) 4.58 Hgb (12.0 - 16.0 G/DL) 12.7 Hct (37 - 47 %) 38.7 MCV (81.0 - 99.0 FL) 84.5 MCH (27.0 - 31.0 PG) 27.6 RDW (11.5 - 14.5 %) 15.8 H Plt Count (130 - 400 /CUMM) 246 MPV (7.4 - 10.4 FL) 8.8 Gran % (42.2 - 75.2 %) 79.3 H Lymphocytes % (20.5 - 51.1 %) 11.4 L Monocytes % (1.7 - 9.3 %) 8.4 Eosinophils % (0 - 5 %) 0.6 Basophils % (0.0 - 2.0 %) 0.3 Absolute Granulocytes (1.4 - 6.5 /CUMM) 9.4 H Absolute Lymphocytes (1.2 - 3.4 /CUMM) 1.4 Absolute Monocytes (0.10 - 0.60 /CUMM) 1.0 H Absolute Eosinophils (0.0 - 0.7 /CUMM) 0.1 Absolute Basophils (0.0 - 0.2 /CUMM) 0 PUBS MCHC (33.0 - 37.0 G/DL) 32.7 L Diagnostic Data EKG Results Atrial fibrillation with nonspecific ST-T wave changes no change from prior tracing CXR Results IMPRESSION: No radiographic evidence of an acute cardiopulmonary process. Assessment/Plan Assessment/Plan #1. Persistent atrial fibrillation on Pradaxa recent Holter demonstrating controlled ventricular response and no significant arrhythmias. #2. Hypertension stable #3. Chronic shortness of breath no evidence for congestive heart failure on chest x-ray or physical exam even though her BNP is elevated. #4. History of obstructive sleep apnea noncompliant with CPAP #5. Hypothyroidism #6. Hyperlipidemia Recommendations #1. I recommend continuing current medications #2. Would obtain a pulmonary consult from Dr. Castañeda since she has an appointment with him to assess her chronic shortness of breath. #3. No further cardiac workup is planned. Recommend she follow-up with Dr. Aldridge as an outpatient Thank you for allowing [facility] to participate in the care of your patient. Copies To: AUDREY BEE,ALONDRA Mroalez Consult Acknowledgment - Thank you for your consult request.
--- NOTE | 2016-11-06 11:21 | PN- Att Addend ---
Attending Addendum Attending Brief Note ASSESSMENT + Acute worsening of shortness of breath + History of A. fib with Intermittent RVR + Transaminitis with elevated alphos + Metastatic disease of liver unknown primary + History of hypothyroidism, HTN, HLD + Coagulopathy INR 1.45 PLAN - Admit on telemetry - Continuous telemetry monitoring - Serial EKG and troponin negative, Cardiology consulted. - right upper quadrant ultrasound positive for metastatic disease unknown primary - [facility] CT chest, abd/pelvis. GI consult - Patient would benefit from outpatient sleep study evaluation. - Continue all her home medications - Pradaxa for DVT prophylaxis - Adequate pain control - OT PT evaluation - can d/c tele if no issues with afib.
--- NOTE | 2016-11-06 11:27 | NUR ---
RESIDENT AT BEDSIDE TO DISUCSS RSULTS OF ULTRASOUND WITH PT
--- NOTE | 2016-11-06 12:06 | NUR ---
PT TO CT SCAN AT THIS TIME
--- NOTE | 2016-11-06 12:23 | NUR ---
CALLED OVER TO CT SCAN, PER HAIR ASSISTANT PT BECAME NAUSEOUS AND STATED SHE FELT LIKE SHE COULDNT BREATHE WHILE LAYING DOWN. BY THE TIME THIS RN CAME OVER TO CT SCAN PT WAS SITTING UP AND STATED SHE WAS FEELING FINE AND BACK TO HER NORMAL SELF. PT STATING SHE WOULD LIKE TO HOLD OFF ON CT SCAN AT THIS TIME. BROUGHT BACK TO ROOM AND PALCED ON CARDAIC MONITOR, REMAINS AFIB HR 80-90 AT THIS TIME. RA SATS 99%. BP 132/63. RESIDENT PAGED.
[2016-11-06 12:30] VITALS: BP 132/63
--- NOTE | 2016-11-06 13:09 | NUR ---
HEART HEALTHY TRAY ORDERED FOR PT AT THIS TIME, PER RESIDENT PT CAN EAT AND THEN GO FOR HER CT SCAN LATER TODAY
--- NOTE | 2016-11-06 13:43 | NUR ---
LUNCH TRAY GIVEN TO PT AT THIS TIME
--- NOTE | 2016-11-06 15:14 | NUR ---
PT GOING TO ROOM 180-2
--- NOTE | 2016-11-06 16:45 | NUR ---
PHYSICAL THERAPY: RECIEVED CONSULT ORDERS, REVIEWED CHART. ATTEMPTED TO SEE Pt THIS P.M., Pt WAS IN BED, CONSULTING/SPEAKING WITH HER MDs AT THIS TIME. P.T. WAITED EXTENDED TIME, HOWEVER Pt REMAINED BUSY AND P.T. LEAVING FLOOR FOR DAY. PER RN NOTES, Pt AMBULATED W/ RW AX1 WITH STEADY GAIT EARLIER. Pt TO BE ADM TO TELEMETRY. P.T. WILL F/U APPROPRIATE TOMORROW FOR EVALUATION.
--- NOTE | 2016-11-06 16:52 | NUR ---
REPORT GIVEN TO RECEIVING RN AND TRANSPORT BOOKED
[2016-11-06 17:37] VITALS: BP 120/76
--- NOTE | 2016-11-06 19:05 | NUR ---
LATE ENTRY ADMISSION NOTE: PT ARRIVED ON FLOOR AT 17:15 PM ACCOMPANIED BY ED RN. NO S/S DISTRESS. VSS. PLACED ON TELE MONITOR AND ORIENTED TO ROOM. WILL CONTINUE TO MONITOR.
--- NOTE | 2016-11-06 19:47 | CT SCAN REPORT ---
EXAMINATION: CT CHEST, ABDOMEN AND PELVIS WITH CONTRAST CLINICAL INFORMATION: Lung cancer. COMPARISON: Chest CT 06/05/2011. TECHNIQUE: Multidetector volumetric imaging was performed from the thoracic inlet through the pubic symphysis following administration of 95 mL Optiray 320 intravenous contrast. Sagittal and coronal reformatted images were obtained on the technologist's workstation. DLP: 706 mGy-cm FINDINGS: CHEST: LUNG: The lungs are clear without focal opacity or suspicious-appearing nodules to suggest a primary or metastatic malignancy to the chest. MEDIASTINUM: Thyroid gland is not well seen likely severely atrophic or previously removed. There is a 1.1 cm short axis dimension precarinal lymph node anterior to the trachea, otherwise no pathologically enlarged nodes are seen. There is mild atherosclerotic aortic artery calcification. No aneurysm. The heart does not appear significantly enlarged. The right atrium appears mildly enlarged. PERICARDIUM/PLEURA: There is a small right-sided pleural effusion with minimal associated dependent atelectasis. CHEST WALL/AXILLA: Unremarkable. ABDOMEN/PELVIS: LIVER, GALLBLADDER, BILIARY TREE: There are innumerable heterogeneously enhancing mass lesions identified throughout both lobes of the liver with somewhat of a conglomerative appearance superiorly in the right lobe with the main focus measuring 15.0 x 11.9 cm in maximal dimensions on image 46 of series 2. No underlying cirrhotic changes are suggested. Gallbladder and biliary tree appear unremarkable. PANCREAS: Mild fatty atrophy, no focal masses. SPLEEN: Unremarkable. ADRENAL GLANDS AND KIDNEYS: There are multiple bilateral renal cysts, the largest exophytic off the midpole of the left kidney measuring 8.7 cm maximal dimension. No suspicious-appearing solid renal masses are seen. The adrenal glands appear unremarkable. URETERS AND BLADDER: Unremarkable. BOWEL LOOPS: Fairly extensive sigmoid colon diverticulosis without evidence of acute diverticulitis. Otherwise unremarkable, appendix is not identified. LYMPHOVASCULAR STRUCTURES: There are multiple small lymph nodes in the violet hepatis region, the largest interposed between the portal vein and IVC measuring 10 mm short axis dimension. There is no pathologically enlarged retroperitoneal nodes although multiple subcentimeter short axis dimension nodes are identified just inferior to the left renal vein anterior to the aorta. PERITONEAL CAVITY: There is a small amount of intraperitoneal free fluid in the deep pelvis. There is no evidence of free air. PELVIC VISCERA: The uterus is not identified, likely previously removed. Adnexal regions appear unremarkable. BONES: No aggressive osseous lesions to suggest metastatic disease. IMPRESSION: 1. Multiple hepatic lesions remain indeterminate in etiology most likely metastases although a central primary malignancy in the right lobe is not entirely excluded. Biopsy is recommended. 2. Multiple small violet hepatis and retroperitoneal lymph nodes with a single mildly enlarged mediastinal lymph node indeterminate in etiology. 3. There is no evidence of widespread metastatic disease or the primary lesion outside of the liver. 4. There is intraperitoneal free fluid in the deep pelvis of uncertain etiology. 5. Left-sided colonic diverticulosis.
[2016-11-06 22:19] VITALS: BP 130/60
--- NOTE | 2016-11-07 07:25 | PN- Housestaff ---
JIMBO LEE 11/07/16 0724: Subjective Follow-up For: - Acute on chronic dyspnea on exertion 2/2 ABILIO vs diastolic CHF - Transaminitis 2/2 ? cancer - Hx of Afib on Pradaxa Complaints: no complaints Tele-Events Since Last Visit: Afib Subjective: Patient seen and examined at bedside. She states she slept well. Does endorse feeling winded even getting up from bed. Review of Systems Constitutional: Reports: weakness. Denies: chills, fever. EENTM: Reports: visual changes. Cardiovascular: Reports: orthopena. Denies: chest pain, palpitations, peripheral edema. Respiratory: Reports: orthopnea, short of breath. Denies: cough, hemoptysis, sputum production, wheezing. Gastrointestinal: Denies: abdominal pain, constipation, diarrhea, nausea, vomiting. Genitourinary: Denies: discharge, dysuria, frequency. Musculoskeletal: Reports: no symptoms. Neurological/Psychological: Denies: headache, numbness, tingling, tremors. Objective Last 24 Hrs of Vital Signs/I&O Vital Signs Date Time Temp Pulse Resp B/P B/P Pulse O2 O2 Flow FiO2 Mean Ox Delivery Rate 11/07 0000 Room Air 11/06 2219 97.9 92 20 130/60 94 Room Air 11/06 1737 98.0 84 20 120/76 97 Room Air 11/06 1657 97.1 84 18 110/65 99 11/06 1230 98.4 88 18 132/63 96 Room Air 11/06 1225 98.4 88 18 132/63 96 Room Air 11/06 0944 98.4 78 18 129/73 11/06 0841 98 Room Air 11/06 0759 98.2 85 18 115/55 99 Room Air 11/06 0742 98.2 85 18 115/55 99 Room Air Intake & Output 11/07 0800 11/07 0000 11/06 1600 Intake Total 240 240 100 Output Total Balance 240 240 100 Intake, Oral 240 240 100 Physical Exam General Appearance: Alert, Oriented X3, Cooperative, Mild Distress (respiratory) HEENT: Atraumatic, PERRLA, EOMI, Mucous Membr. moist/pink Neck: Supple, No JVD, No LAD Cardiovascular: Normal S1, Normal S2, No Murmurs, irregularly irregular Lungs: Clear to Auscultation, Normal Air Movement Abdomen: Normal Bowel Sounds, Soft, No Tenderness Neurological: Normal Speech, Strength at 5/5 X4 Ext, Normal Tone, Sensation Intact, Cranial Nerves 3-12 NL, Reflexes 2+ Extremities: No Clubbing, No Cyanosis, No Edema, Normal Pulses, No Tenderness/ Swelling Vascular: Normal Pulses, Pulses Symmetrical Current Medications: Current Medications Sig/Mary Start time Last Medication Dose Route Stop Time Status Admin Atorvastatin Calcium 40 MG 1700 11/06 1700 CAN PO Dabigatran 150 MG BID 11/06 0400 DC 11/06 PO 210 Duloxetine HCl 60 MG DAILY 11/06 1000 AC 11/06 PO 0944 Hydrochlorothiazide 12.5 MG DAILY 11/06 1000 AC 11/06 PO 0944 Levothyroxine Sodium 0.112 MG DAILY AC 11/06 0700 AC 11/07 PO 0550 Lorazepam 0 .STK-MED ONE 11/06 1625 DC PO Lorazepam 0.5 MG BID PRN 11/06 1615 AC 11/06 PO 11/13 1614 1621 Losartan Potassium 100 MG DAILY 11/06 1000 AC 11/06 PO 0944 Mirtazapine 30 MG QPM 11/06 2200 AC 11/06 PO 210 Last 24 Hrs of Lab/Sreedhar Results Last 24 Hrs of Labs/Mics: Laboratory Tests 11/07/16 0701: Total Bilirubin Pending, Direct Bilirubin Pending, AST Pending, ALT Pending, Alkaline Phosphatase Pending, Total Protein Pending, Albumin Pending, CBC w Diff Pending, WBC Pending, RBC Pending, Hgb Pending, Hct Pending, MCV Pending, MCH Pending, RDW Pending, Plt Count Pending, MPV Pending, PUBS MCHC Pending 11/06/16 0856: Troponin I 0.05, Hepatitis A IgM Ab NONREACTIVE, Hep Bs Antigen NONREACTIVE, Hep B Core IgM Ab Conf NONREACTIVE, Hepatitis C Antibody NONREACTIVE Orders Radiology Findings: SERVICE DATE: 11/06/16- EXAM TYPE: CAT - CT ABD & PELVIS W IV CONTRAST; CT CHEST W IV CONTRAST FINDINGS: CHEST: LUNG: The lungs are clear without focal opacity or suspicious-appearing nodules to suggest a primary or metastatic malignancy to the chest. MEDIASTINUM: Thyroid gland is not well seen likely severely atrophic or previously removed. There is a 1.1 cm short axis dimension precarinal lymph node anterior to the trachea, otherwise no pathologically enlarged nodes are seen. There is mild atherosclerotic aortic artery calcification. No aneurysm. The heart does not appear significantly enlarged. The right atrium appears mildly enlarged. PERICARDIUM/PLEURA: There is a small right-sided pleural effusion with minimal associated dependent atelectasis. CHEST WALL/AXILLA: Unremarkable. ABDOMEN/PELVIS: LIVER, GALLBLADDER, BILIARY TREE: There are innumerable heterogeneously enhancing mass lesions identified throughout both lobes of the liver with somewhat of a conglomerative appearance superiorly in the right lobe with the main focus measuring 15.0 x 11.9 cm in maximal dimensions on image 46 of series 2. No underlying cirrhotic changes are suggested. Gallbladder and biliary tree appear unremarkable. PANCREAS: Mild fatty atrophy, no focal masses. SPLEEN: Unremarkable. ADRENAL GLANDS AND KIDNEYS: There are multiple bilateral renal cysts, the largest exophytic off the midpole of the left kidney measuring 8.7 cm maximal dimension. No suspicious-appearing solid renal masses are seen. The adrenal glands appear unremarkable. URETERS AND BLADDER: Unremarkable. BOWEL LOOPS: Fairly extensive sigmoid colon diverticulosis without evidence of acute diverticulitis. Otherwise unremarkable, appendix is not identified. LYMPHOVASCULAR STRUCTURES: There are multiple small lymph nodes in the violet hepatis region, the largest interposed between the portal vein and IVC measuring 10 mm short axis dimension. There is no pathologically enlarged retroperitoneal nodes although multiple subcentimeter short axis dimension nodes are identified just inferior to the left renal vein anterior to the aorta. PERITONEAL CAVITY: There is a small amount of intraperitoneal free fluid in the deep pelvis. There is no evidence of free air. PELVIC VISCERA: The uterus is not identified, likely previously removed. Adnexal regions appear unremarkable. BONES: No aggressive osseous lesions to suggest metastatic disease. IMPRESSION: 1. Multiple hepatic lesions remain indeterminate in etiology most likely metastases although a central primary malignancy in the right lobe is not entirely excluded. Biopsy is recommended. 2. Multiple small violet hepatis and retroperitoneal lymph nodes with a single mildly enlarged mediastinal lymph node indeterminate in etiology. 3. There is no evidence of widespread metastatic disease or the primary lesion outside of the liver. 4. There is intraperitoneal free fluid in the deep pelvis of uncertain etiology. 5. Left-sided colonic diverticulosis. Assessment/Plan Assessment: 76 year old female with past medical history of hypertension, hyperlipidemia, hypothyroidism, and atrial fibrillation on pradaxa presents with acute on chronic dyspnea. Vitals on admission BP: 146/92, RR: 20, pulse: 74, A/F, 97% RA. On physical exam she is alert and oriented x3, cooperative, and in NAD. HEENT revealed PERRLA, EOMI, moist mucous membranes, neck was supple, no JVD, cardiovascular exam revealed normal S1, S2, irregularly irregular rate. Respiratory exam revealed chest clear to auscultation bilaterally. Abdominal exam revealed normal bowel sounds, distended, with tenderness to palpation in epigastric area. Examination of lower extremity did not reveal any edema. Labs were pertinent leukocytosis with WBC: 11.8, H&H: 12.7/38.7, platelet count 246,000. Serum chemistries Na: 137, K: 4.0, normal anion gap: 14, BUN: 14, Cr: 0.7, LFTs revealed: AST/ALT: 112/71, alkaline phophatase: 618, troponin <0.01 CXR showed: No radiographic evidence of an acute cardiopulmonary process. EKG showed: atrial fibrillation, ? T waveinversions in precordial leads. She was admitted to Tele[facility] given EKG changes and the following problems were addressed: # Acute on chronic dyspnea on exertion - This was thought to be multifactorial 2/2 heart failure vs ABILIO and noncompliance with CPAP vs pulmonary embolsim (of note she was on Pradxa for A. Fib and apparently a CTA was done by her primary writer editor in August 2016, which showed no evidence of PE). ACS was r/o with trops and EKG unremarkable. The EKGs from Dr. Sanderson office were obtained, and T-wave inversions were chronic. - Cardiology did not deem her SOB to be related to the heart, and suggested a pulm eval. - Pulmonary consult with Dr. Crawford was placed and she will see the patient tomorow. - Meanwhile CTA of chest wth IV contrast was done. The lungs are clear without focal opacity or suspicious-appearing nodules. There is a 1.1 cm short axis dimension precarinal lymph node anterior to the trachea, otherwise no pathologically enlarged nodes are seen. This small right-sided pleural effusion with minimal associated dependent atelectasis. #Transaminitis - ? liver cancer - US of Abdomen was done which showed multiple lesions in the liver. A follow up chest CT/Abdomen/Pelvis with IV contrast was done which showed innumerable heterogeneously enhancing mass lesions identified throughout both lobes of the liver with somewhat of a conglomerative appearance superiorly in the right lobe with the main focus measuring 15.0 x 11.9 cm. There are multiple small lymph nodes in the violet hepatis region, the largest interposed between the portal vein and IVC measuring 10 mm short axis dimension. There is no pathologically enlarged retroperitoneal nodes although multiple subcentimeter short axis dimension nodes are identified just inferior to the left renal vein anterior to the aorta. - GI consult was obtained. F/U recommendations. - IR was consulted for an outpatient liver biopsy that is scheduled for Saturday11/12/16 @ 8:00am. Patient will be NPO after MN on Saturday, and will undergo an US- guided liver biopsy as per Dr. Jane. - Hepatitis panel was negative. - Will send for alpha fetoprotein levels. - Called and spoke with Dr. Knowles. Patient will be provided his referral upon discharge for outpatient follow-up. #Atrial fibrillation on Pradaxa - Currently rate controlled - Patient is scheduled for a liver biopsy on Saturday and will reciev her last dose of Pradxa on 11/08/16. She will be off AC for atleast 72 hrs before the procedure and is to resume taking the medication 3-5 day post procedure as елена jarrett safe by IR. -Meanwhile continue Bisoprolol, Losartan nd HCTZ. #Hypothyroidism - TSH 7.80, with normal FT4 - 2/2 euthyroid? - Continue Synthroid 112mcg daily PO. - DVT Prophylaxis - On Pradaxa - Diet Heart healthy - Code status - Full Code. Problem List: 1. Liver masses 2. Dyspnea on exertion 3. Afib Pain Ratin Pain Location: n/a Pain Goal: Remain pain free Pain Plan: alternative [employer] Labs & Rationales: cbc - monitor wbc ULISESFRANK Thompson 11/07/16 1006: Attending MD Review Statement Attending Statement Attending MD Statement: examined this patient, discuss w/resident/PA/INCOME TAX RETURN PREPARER, agreed w/resident/PA/INCOME TAX RETURN PREPARER, discussed with family, reviewed EMR data (avail), discussed with nursing, discussed with case mgmt, reviewed images, amended to note Attending Assessment/Plan: ASSESSMENT + Acute worsening of shortness of breath + History of A. fib with Intermittent RVR + Transaminitis with elevated alphos + Metastatic disease of liver unknown primary + History of hypothyroidism, HTN, HLD + Coagulopathy INR 1.45 PLAN - discontinue tele. - Continuous telemetry monitoring - Serial EKG and troponin negative, Cardiology consulted. - right upper quadrant ultrasound positive for metastatic disease unknown primary - Joyner CT chest, abd/pelvis. GI consulted, recommend o/p liver biopsy. IR consult for appointment. - Continue all her home medications - Pradaxa for DVT prophylaxis - Adequate pain control - OT PT evaluation - can d/c tele if no issues with afib. pradaxa need to be off for 3 days before procedure. oncology referral as o/p.
[2016-11-07 07:28] VITALS: BP 130/60
[2016-11-07 08:07] LABS: ABSOLUTE BASOPHIL COUNT 0 /CUMM (0.0-0.2); ABSOLUTE EOSINOPHIL COUNT 0 /CUMM (0.0-0.7); ABSOLUTE LYMPH COUNT 1.1 /CUMM (1.2-3.4); ABSOLUTE MONOCYTE COUNT 0.9 /CUMM (0.10-0.60); BASOPHIL % 0.2 % (0.0-2.0); EOSINOPHIL % 0.4 % (0-5); GRANULOCYTE % 77.5 % (42.2-75.2); HEMATOCRIT 35.3 % (37-47); MEAN CORPUSCULAR HGB 27.9 PG (27.0-31.0); MEAN CORPUSCULAR HGB CONC 33.1 G/DL (33.0-37.0); MEAN CORPUSCULAR VOLUME 84.4 FL (81.0-99.0); MEAN PLATELET VOLUME 8.7 FL (7.4-10.4); PLATELET COUNT 212 /CUMM (130-400); RBC DISTRIBUTION WIDTH 15.8 % (11.5-14.5); RED BLOOD CELL CT 4.18 /CUMM (4.20-5.40); WHITE BLOOD CELL COUNT 9.1 /CUMM (4.8-10.8)
--- NOTE | 2016-11-07 08:56 | Cons- Gastroenterology ---
General Information and HPI Consulting Request Date of Consult: 11/07/16 Requested By: FRANK VILLATORO MD Reason for Consult: I was just notified of a request by the hospitalist service for a GI consult to assess elevated LFTs and imaging studies consistent with multiple liver lesions, in an elderly female admitted 11/05/2016, with shortness of breath. Currently, HD #3. (The patient had been seen by the medical student prior to my evaluation ). Source of Information: patient, old records Exam Limitations: fair historian History of Present Illness: 76 y/o female, obese, HTN, HLD, chronic afib with intermittent RVR (failed cardioversion in 2013), on Pradaxa (? compliance), COPD, ABILIO- not c/w CPAP, hypoT4, ex-25 pk yr cigarette smoker & ex-moderate EtOH (both stopped 1986), admitted to [facility] 11/05/16, presenting with elevated heart rate and hypoxia with worsening shortness of breath. She denied chest pain or edema. She was to have seen Dr. Castañeda, of pulmonary, as an outpatient, on 11/14/16. Her PMD is Dr. Spain, and she sees Drs. Sandoval/You of cardiology. Once admitted, the patient mentioned 2-3 months of intermittent sharp right subcostal pain, not associated with eating or exertion. She may have stopped her Pradaxa, thinking this was the source of her pain (poor historian). It was resumed as an inpatient. She denied any jaundice, dark urine, light stool, or pruritus. She denied any known history of liver disease or viral hepatitis, although she does have an old tattoo. There is no definite history of blood transfusion. She denied any illicit drug use or IVDA. She had 1 episode of clear vomitus upon admission, without any bile or hematemesis. She denied any weight loss, but had fatigue. Her appetite was fairly good. She denied any GERD, odynophagia, dysphagia, early satiety, diarrhea, constipation, obstipation, tenesmus, change in stool caliber, BRBPR or melena. She denied any family history of GI Ca, GI disease, or inherited liver disease, although her father- 68, EtOH cirrhosis. The patient claimed she had a combined EGD/ colonoscopy at [facility] > 15 years ago, results of which are unknown. There was no hemoptysis, vaginal spotting, or gross hematuria. She denied any fevers or chills, but possibly some sweats & flushing. She may have had some wheezing, but this may have been related to her cardiopulmonary issues. She had no symptoms of URI or UTI. The patient is being diuresed by cardiology. Her dyspnea is multifactorial., Keeping in mind her COPD and ABILIO. Imaging studies on admission, including RUQ sono & CT CAP with IV contrast were highly suspicious for multiple B/L liver lesions, which looked malignant (*See imaging studies). *The patient is well aware of this, as per my discussion with her earlier on 11/07/16. Upon admission 11/05/16, the patient was found to have elevated LFTs, predominantly alk phos 618, TBil 1.0, AST 112, ALT 71, alb 3.7, glob 3.1, GFR > 60, INR 1.48, WBC 11.8, H/H 12.7/38.7, nl MCV, PLT 246, troponin- neg, elevated BNP 3260, TSH 7.84. U/A- cloudy, maia, 1.025, 6.0, 1-3 WBC, mod bact, neg icto, 30+ prot, 4.0 urobil, neg nitirite, neg esterase. 11/06/16: Hep A Ab, Hep Bs Ag, Hep B core Ab, Hep C Ab- all neg. Allergies/Medications Allergies: Coded Allergies: NO KNOWN ALLERGIES (02/03/16) Home Med List: Bimatoprost (Lumigan) 2.5 ML DROPS 1 GTT OPH QPM BOTH EYES - GLAUCOMA ( Reported) Bisoprolol Fumarate/Hctz (Bisoprolol-Hctz 2.5-6.25 MG Tb) 1 EACH TABLET 1 TAB PO DAILY BP (Reported) Dabigatran Etexilate Mesylate (Pradaxa 150 MG) 150 MG CAPSULE 1 CAP PO BID BLOOD THINNER (Reported) Duloxetine HCl (Cymbalta) 60 MG CAPSULE.DR 1 CAP PO DAILY DEPRESSION ( Reported) Ferrous Sulfate 325 MG TABLET 1 TAB PO DAILY SUPPLEMENT (Reported) Hydrocodone/Acetaminophen (Hydrocodon-Acetaminophen 5-325) 1 EACH TABLET 1 TAB PO PRN PAIN (Reported) Levothyroxine Sodium 112 MCG TABLET 1 TAB PO DAILY THYROID (Reported) Losartan/Hydrochlorothiazide (Losartan-Hctz 100-12.5 MG Tab) 1 EACH TABLET 1 TAB PO QPM BP (Reported) Mirtazapine 30 MG TABLET 1 TAB PO QPM MENTAL HEALTH (Reported) Rosuvastatin Calcium (Crestor) 10 MG TABLET 1 TAB PO DAILY CHOLESTEROL ( Reported) Current Medications: Current Medications Sig/Mary Start time Last Medication Dose Route Stop Time Status Admin Bisoprolol Fumarate 2.5 MG DAILY 11/07 1000 AC 11/07 PO 1020 Dabigatran 150 MG BID 11/07 1045 AC 11/07 PO 1221 Dabigatran 150 MG BID 11/06 0400 DC 11/06 PO 2101 Duloxetine HCl 60 MG DAILY 11/06 1000 AC 11/07 PO 1020 Hydrochlorothiazide 12.5 MG DAILY 11/06 1000 AC 11/07 PO 1220 Levothyroxine Sodium 0.112 MG DAILY AC 11/06 0700 AC 11/07 PO 0550 Lorazepam 0 .STK-MED ONE 11/06 1625 DC PO Lorazepam 0.5 MG BID PRN 11/06 1615 AC 11/06 PO 11/13 1614 1621 Losartan Potassium 100 MG DAILY 11/06 1000 AC 11/07 PO 1021 Mirtazapine 30 MG QPM 11/06 2200 AC 11/06 PO 2101 Patient Medication 1 ED .STK-MED ONE 11/07 1440 DC Teaching ED 11/07 1441 Past History Travel History Traveled to [place] past 21 day No Medical History Blood Transfusion Hx: No Neurological: NONE EENT: NONE Cardiovascular: AFIB, hypertension, hyperlipidemia, MITRAL VALVE PROLAPSE Respiratory: COPD, obstructive sleep apnea Gastrointestinal: NONE Hepatic: NONE Renal: NONE Musculoskeletal: ARTHRITIS Psychiatric: depression (on Cymbalta) Endocrine: hypothyroidism, obesity Blood Disorders: NONE Cancer(s): NONE STAGE DIRECTOR/Reproductive: NONE Surgical History Surgical History: hysterectomy, PARATHYROOIDECTOMY L THUMB RECONSTRUCTION, right TKR Family History Relations & Conditions If Any: FATHER, , Age 68; Cause: Alcoholic cirrhosis. MOTHER, , Age 51; Cause: Flu. Psychosocial History Where Do You Live? Home Who Do You Live With? spouse (sister is visiting), self Services at Home: None Primary Language: Portuguese Smoking Status: Former Smoker ETOH Use: previous use Illicit Drug Use: denies illicit drug use Living Will? no Power of Solution Architect/HCP? no Other Social History: . Lives alone with sister visiting. Ex-25 pk yr cigarette smoker & ex- moderate EtOH, both stopped 1986. No illicit drug use or IVDA. Old tattoo. 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. No children. Functional Ability ADLs Independent: dressing, eating, toileting, bathing. Ambulation: independent IADLs Independent: shopping, housework, finances, food prep, telephone, transportation , medication admin. Employment History Employment: Retired Profession/Employer: Was nurse's aide at [employer] ECHO Results (as available) Date of last Echo 07/27/13 EF% 60 Review of Systems Review of Systems: Full 14 point ROS otherwise noncontributory & as above. Review of Systems Constitutional: Reports: malaise, weakness. Denies: chills, diaphoresis, fever, unexplained weight loss. EENTM: Denies: blurred vision, double vision, visual changes, eye pain, eye drainage, eye tearing, icterus, ear discharge, ear pain, ear redness, hearing changes, nasal congestion, epistaxis, nasal pain, throat pain, throat swelling, mouth pain, tooth pain. Cardiovascular: Denies: chest pain, edema, orthopena, palpitations, peripheral edema, syncope. Respiratory: Reports: short of breath, wheezing (mild). Denies: cough, hemoptysis, orthopnea , sputum production, stridor. GI: Reports: abdominal pain (right subcostal). Denies: bloating, constipation, diarrhea, distention, bowel incontinence, melena, nausea, bloody stool, changes in stool, vomiting, steatorrhea. Genitourinary: Denies: discharge, dysuria, frequency, hematuria, hesitation, nocturia, pain, urgency. Musculoskeletal: Reports: joint pain (DJD). Denies: back pain, gout, joint swelling, muscle pain , muscle stiffness, neck pain. Skin: Denies: cysts, change in skin color, change in hair/nails, dryness, erythema, jaundice, lesions, lymphangitis, lumps, moles, rash. Neurological/Psychological: Reports: depressed, emotional problems, weakness. Denies: anxiety, ataxia, cognitive dysfunction, confusion, dementia, headache, numbness, paresthesia, pre -existing deficit, petit mal seizures, tingling, tremors, tonic-clonic seizures, unable to move lower ext, unable to move upper ext. Hematologic/Endocrine: Denies: bruising, bleeding, polyuria, polydipsia. Immunologic/Allergic: Denies: splenectomy, HIV/AIDS, lymphadenopathy. All Other Systems: Reviewed and Negative Exam & Diagnostic Data Vital Signs and I&O Vital Signs Date Time Temp Pulse Resp B/P B/P Pulse O2 O2 Flow FiO2 Mean Ox Delivery Rate 11/07 0728 97.4 83 20 130/60 95 Room Air 11/07 0000 Room Air 11/06 2219 97.9 92 20 130/60 94 Room Air 11/06 1737 98.0 84 20 120/76 97 Room Air 11/06 1657 97.1 84 18 110/65 99 11/06 1230 98.4 88 18 132/63 96 Room Air 11/06 1225 98.4 88 18 132/63 96 Room Air 11/06 0944 98.4 78 18 129/73 11/06 0841 98 Room Air Intake & Output 11/07 1600 11/07 0400 11/06 0400 11/05 1600 11/05 0400 Intake Total 240 240 100 0 Output Total Balance 240 240 100 0 Intake, Oral 240 240 100 0 Patient 190 lb Weight Weight Reported by Patient Measurement Method Physical Exam: Well-developed, well-nourished, obese female, in mild distress. Sclera anicteric. Conjunctiva pink. Oropharynx clear. Slightly dry mucus membranes. No oral thrush. No aphthous ulcers. There is no adenopathy, thyromegaly, or JVD. No peripheral stigmata of inflammatory bowel disease or chronic liver disease on exam. No spiders on the anterior chest wall. Breast & pelvic exams: API. No CVA tenderness. No spine tenderness. No CWT. Lungs: clear to A&P, with slight decreased BS at the right base. No wheezing, rales, or rhonchi. Heart exam: irregularly irregular rate rhythm, S1 and S2, without any murmur. Abdominal exam: normal bowel sounds, soft belly, obese, right subcostal & RUQ tenderness, without guarding or rebound. No definite Irving sign. No mass, but slightly tender, nodular liver edge. Liver approximately 14 cm by percussion. No splenomegaly. No fluid shift. No pulsatile mass. No epigastric bruit. Digital rectal exam by myself 11/07/16: brown stool, OB- negative, without mass, nontender, normal sphincter tone, no external hemorrhoid, no fissure. Extremities: without C, C, or E. DJD. Scar right knee, post right TKR. Old tattoo right ankle. No palpable cords. No palmar erythema. No Dupuytren's contractures. Distal pulses 1+ bilaterally. DTRs 2+ bilaterally.Alert and oriented x 3. No tremor. No asterixis. Results Pertinent Lab Results: Laboratory Tests 11/07 11/07 11/06 [facility] 0701 0856 Chemistry Sodium (137 - 145 mmol/L) 137 Potassium (3.5 - 5.1 mmol/L) 3.5 Chloride (98 - 107 mmol/L) 103 Carbon Dioxide (22 - 30 mmol/L) 23 Anion Gap (5 - 16) 11 BUN (7 - 17 mg/dL) 15 Creatinine (0.5 - 1.0 mg/dL) 0.6 Estimated GFR (>60 ml/min) > 60 BUN/Creatinine Ratio (7 - 25 %) 25.0 Total Bilirubin (0.2 - 1.3 mg/dL) 0.9 Direct Bilirubin (< 0.4 mg/dL) 0.4 AST (14 - 36 U/L) 82 H ALT (9 - 52 U/L) 48 Alkaline Phosphatase (<127 U/L) 495 H Troponin I (< 0.11 ng/ml) 0.05 Total Protein (6.3 - 8.2 g/dL) 5.6 L Albumin (3.5 - 5.0 g/dL) 2.9 L Alpha Fetoprotein Pending Hematology CBC w Diff NO MAN DIFF REQ WBC (4.8 - 10.8 /CUMM) 9.1 RBC (4.20 - 5.40 /CUMM) 4.18 L Hgb (12.0 - 16.0 G/DL) 11.7 L Hct (37 - 47 %) 35.3 L MCV (81.0 - 99.0 FL) 84.4 MCH (27.0 - 31.0 PG) 27.9 RDW (11.5 - 14.5 %) 15.8 H Plt Count (130 - 400 /CUMM) 212 MPV (7.4 - 10.4 FL) 8.7 Gran % (42.2 - 75.2 %) 77.5 H Lymphocytes % (20.5 - 51.1 %) 12.3 L Monocytes % (1.7 - 9.3 %) 9.6 H Eosinophils % (0 - 5 %) 0.4 Basophils % (0.0 - 2.0 %) 0.2 Absolute Granulocytes (1.4 - 6.5 /CUMM) 7.0 H Absolute Lymphocytes (1.2 - 3.4 /CUMM) 1.1 L Absolute Monocytes (0.10 - 0.60 /CUMM) 0.9 H Absolute Eosinophils (0.0 - 0.7 /CUMM) 0 Absolute Basophils (0.0 - 0.2 /CUMM) 0 PUBS MCHC (33.0 - 37.0 G/DL) 33.1 Serology Hepatitis A IgM Ab (NONREACTIVE) NONREACTIVE Hep Bs Antigen (NONREACTIVE) NONREACTIVE Hep B Core IgM Ab Conf (NONREACTIVE) NONREACTIVE Hepatitis C Antibody (NONREACTIVE) NONREACTIVE 11/06 11/05 6966 1845 Chemistry Troponin I (< 0.11 ng/ml) 0.10 Urines Urinalysis LIGHT H Urine Color (YEL,AMB,STR) MAIA Urine Clarity (CLEAR) CLDY H Urine pH (5.0 - 8.0) 6.0 Ur Specific [place] (1.001 - 1.035) 1.025 Urine Protein (NEG,<30 MG/DL) 30 H Urine Ketones (NEG) NEG Urine Nitrite (NEG) NEG Urine Bilirubin (NEG) NEG@ICTO Urine Urobilinogen (0.1 - 1.0 EU/dl) 4.0 H Ur Leukocyte Esterase (NEG) NEG Ur Microscopic SEDIMENT EXAMINED Urine WBC (0 - 2 /HPF) 1-3 H Ur Epithelial Cells (NONE,FEW) MOD H Urine Bacteria (NEG/NONE) MOD H Urine Mucus (FEW,NONE) MOD H Urine Hemoglobin (NEG) NEG Urine Glucose (N MG/DL) NEG 11/05 2100 Chemistry Sodium (137 - 145 mmol/L) 137 Potassium (3.5 - 5.1 mmol/L) 4.0 Chloride (98 - 107 mmol/L) 100 Carbon Dioxide (22 - 30 mmol/L) 23 Anion Gap (5 - 16) 14 BUN (7 - 17 mg/dL) 14 Creatinine (0.5 - 1.0 mg/dL) 0.7 Estimated GFR (>60 ml/min) > 60 BUN/Creatinine Ratio (7 - 25 %) 20.0 Glucose (65 - 99 mg/dL) 133 H Calcium (8.4 - 10.2 mg/dL) 8.7 Total Bilirubin (0.2 - 1.3 mg/dL) 1.0 AST (14 - 36 U/L) 112 H ALT (9 - 52 U/L) 71 H Alkaline Phosphatase (<127 U/L) 618 H Troponin I (< 0.11 ng/ml) < 0.01 Wyq-R-[id number] Pept (<125 pg/mL) 3260 H Total Protein (6.3 - 8.2 g/dL) 6.8 Albumin (3.5 - 5.0 g/dL) 3.7 Globulin (1.9 - 4.2 gm/dL) 3.1 Albumin/Globulin Ratio (1.1 - 2.2 %) 1.2 Amylase (30 - 110 U/L) 38 Lipase (23 - 300 U/L) 67 TSH (0.270 - 4.200 uIU/mL) 7.840 H Free T4 (0.78 - 2.44 ng/dL) 1.33 Coagulation PT (9.4 - 12.5 SEC) 15.5 H INR (0.90 - 1.19) 1.48 H APTT (25 - 37 SEC) 83 H Hematology CBC w Diff NO MAN DIFF REQ WBC (4.8 - 10.8 /CUMM) 11.8 H RBC (4.20 - 5.40 /CUMM) 4.58 Hgb (12.0 - 16.0 G/DL) 12.7 Hct (37 - 47 %) 38.7 MCV (81.0 - 99.0 FL) 84.5 MCH (27.0 - 31.0 PG) 27.6 RDW (11.5 - 14.5 %) 15.8 H Plt Count (130 - 400 /CUMM) 246 MPV (7.4 - 10.4 FL) 8.8 Gran % (42.2 - 75.2 %) 79.3 H Lymphocytes % (20.5 - 51.1 %) 11.4 L Monocytes % (1.7 - 9.3 %) 8.4 Eosinophils % (0 - 5 %) 0.6 Basophils % (0.0 - 2.0 %) 0.3 Absolute Granulocytes (1.4 - 6.5 /CUMM) 9.4 H Absolute Lymphocytes (1.2 - 3.4 /CUMM) 1.4 Absolute Monocytes (0.10 - 0.60 /CUMM) 1.0 H Absolute Eosinophils (0.0 - 0.7 /CUMM) 0.1 Absolute Basophils (0.0 - 0.2 /CUMM) 0 PUBS MCHC (33.0 - 37.0 G/DL) 32.7 L Imaging/Other Studies: 11/05/16: EKG- afib @ 92, normal axis, diffuse nonspecific repolarization abnormalities vs. ischemia. 11/06/16: EKG- afib @ 70, normal axis, diffuse nonspecific repolarization abnormalities vs. ischemia. 11/05/16: XRY-CHEST XRAY, PA AND LATERAL- No radiographic evidence of an acute cardiopulmonary process. 11/06/16: US ABDOMEN (RUQ) LIMITED- 1. Diffuse hepatic steatosis, with multiple solid, hypoechoic masses B/L. Findings consistent with metastatic disease of the liver (uncertain primary). Further workup is advised. 2. Gallbladder is normal. Normal CBD 4 mm. 3. The right kidney has simple cysts, one measuring up to 2.7 cm and another measuring up to 8.5 cm. 11/06/16: CT CHEST, ABDOMEN AND PELVIS WITH IV CONTRAST- 1. Innumerable hepatic lesions in both lobes remain indeterminate in etiology, most likely metastases, although a central primary malignancy in the right lobe is not entirely excluded, where a conglomerative appearance of 15 cm x 11.9 cm maximal dimension seen. No cirrhotic changes noted. Normal bladder and biliary tree. Biopsy is recommended. 2. Multiple small violet hepatis and retroperitoneal lymph nodes with a single mildly enlarged mediastinal lymph node indeterminate in etiology. Mild fatty atrophy of the pancreas, without mass. Normal spleen. 3. There is no evidence of widespread metastatic disease or the primary lesion outside of the liver. Clear lungs, except for small right pleural effusion, with minimal associated atelectasis. 4. There is intraperitoneal free fluid in the deep pelvis of uncertain etiology. Uterus not identified. No free air or bowel obstruction. 5. Left-sided colonic diverticulosis, without diverticulitis. 6. Multiple bilateral renal cysts. 7. No bony lesions. Assessment/Plan Assessment/Recommendations: 76 y/o female, obese, HTN, HLD, chronic afib with intermittent RVR (failed cardioversion in 2013), on Pradaxa (? compliance), COPD, ABILIO- not c/w CPAP, hypoT4, ex-25 pk yr cigarette smoker & ex-moderate EtOH (both stopped 1986), admitted to [facility] 11/05/16, presenting with elevated heart rate and hypoxia with worsening shortness of breath. She denied chest pain or edema. She was to have seen Dr. Castañeda, of pulmonary, as an outpatient, on 11/14/16. Her PMD is Dr. Spain, and she sees Drs. Sandoval/You of cardiology. Once admitted, the patient mentioned 2-3 months of intermittent sharp right subcostal pain, not associated with eating or exertion. She may have stopped her Pradaxa, thinking this was the source of her pain (poor historian). It was resumed as an inpatient. She denied any jaundice, dark urine, light stool, or pruritus. She denied any known history of liver disease or viral hepatitis, although she does have an old tattoo. There is no definite history of blood transfusion. She denied any illicit drug use or IVDA. She had 1 episode of clear vomitus upon admission, without any bile or hematemesis. She denied any weight loss, but had fatigue. Her appetite was fairly good. She denied any GERD, odynophagia, dysphagia, early satiety, diarrhea, constipation, obstipation, tenesmus, change in stool caliber, BRBPR or melena. She denied any family history of GI Ca, GI disease, or inherited liver disease, although her father- 68, EtOH cirrhosis. The patient claimed she had a combined EGD/ colonoscopy at [facility] > 15 years ago, results of which are unknown. There was no hemoptysis, vaginal spotting, or gross hematuria. She denied any fevers or chills, but possibly some sweats & flushing. She may have had some wheezing, but this may have been related to her cardiopulmonary issues. She had no symptoms of URI or UTI. The patient is being diuresed by cardiology. Her dyspnea is multifactorial., Keeping in mind her COPD and ABILIO. Imaging studies on admission, including RUQ sono & CT CAP with IV contrast were highly suspicious for multiple B/L liver lesions, which looked malignant (*See imaging studies). *The patient is well aware of this, as per my discussion with her earlier on 11/07/16. Upon admission 11/05/16, the patient was found to have elevated LFTs, predominantly alk phos 618, TBil 1.0, AST 112, ALT 71, alb 3.7, glob 3.1, GFR > 60, INR 1.48, WBC 11.8, H/H 12.7/38.7, nl MCV, PLT 246, troponin- neg, elevated BNP 3260, TSH 7.84. U/A- cloudy, maia, 1.025, 6.0, 1-3 WBC, mod bact, neg icto, 30+ prot, 4.0 urobil, neg nitirite, neg esterase. 11/06/16: Hep A Ab, Hep Bs Ag, Hep B core Ab, Hep C Ab- all neg. *Unfortunately, the patient seems to have been incidentally found to have widespread tumor in her liver B/L, with large conglomerate in the right lobe, and suggestion of some shotty nodes in the violet hepatis, without any dilated ducts, after presenting with rapid A. fib, shortness of breath, & hypoxia. This appears to be malignant in appearance, and the patient is aware of this high probability. Differential diagnosis includes metastatic disease to the liver ( probably from the GI tract) vs. multifocal hepatoma vs. neuroendocrine tumor ( rule out carcinoid with history of flushing and +/- wheezing). The patient is back on Pradaxa. Apparently, she stopped it as an outpatient. She claimed she had a remote EGD/colonoscopy at [facility] > 15 years ago, the results of which are unknown. Aside from some RUQ pain, she had no additional GI symptoms. Her stools were brown, guaiac-negative. Her liver does no look cirrhotic by CT, nor does she appear cirrhotic by labs. She has a normal platelet count and normal albumin:globulin ratio. The above liver lesions do not look like abscesses. The patient is in need of a liver biopsy. This could certainly be done as an outpatient, assuming her cardiopulmonary status stabilizes. I spoke with Dr. Dye, of cardiology. *Pradaxa can be held 2 days prior to liver biopsy by IR, and hopefully can carefully be resumed 3-5 days after the liver biopsy. SUGGEST: Optimize cardiopulmonary status, per medical/cardiology/pulmonary teams. *Advise liver biopsy by IR (? inpatient vs. outpatient), holding Pradaxa 2 days preop. ( *It will take at least 1 week for the liver biopsy to be read, as it will most likely be sent out to [facility]). Advise resuming Pradaxa 3-5 days post liver biopsy , watching for signs of bleeding. Once tissue diagnosis is obtained, advise oncology consultation. *Oncology should contact me after their review of the liver pathology, to determine if EGD/colonoscopy will exchange teller. * Advise checking CEA & AFP. *Consideration for checking chromogranin A, 24 hour urine for 5HIAA, and serum serotonin levels if liver biopsy is consistent with carcinoid. Pain control. DVT prophylaxis. *The patient was given my office number. *Further inpatient GI follow-up as needed.The above was discussed with Dr. Villatoro today. Problem List: 1. Abdominal pain 2. Liver masses 3. Elevated LFTs 4. Abnormal CT of liver Copies To: GLO BEE,SHERLY; ARVIN BEE,HATTIE; ULISES BEE,FRANK; MELI BEE,KEDAR Mccall; YOU BEE,GRACE; JOHN BEE,TATA Consult Acknowledgment - Thank you for your consult request.
--- NOTE | 2016-11-07 11:07 | PN- Cardiology ---
Subjective Subjective: The patient is awake, alert The events of the last 24 hours as well as telemetry were reviewed. Review of Systems: The review of systems is negative for chest pains, palpitations nor lightheadedness. The remainder of the 14 point review of systems is noncontributory with the exception of above. Objective Vital Signs and I&Os Vital Signs Date Time Temp Pulse Resp B/P B/P Pulse O2 O2 Flow FiO2 Mean Ox Delivery Rate 11/07 1021 83 130/60 / 0728 97.4 83 20 130/60 95 Room Air 11/07 0000 Room Air 11/06 2219 97.9 92 20 130/60 94 Room Air 11/06 1737 98.0 84 20 120/76 97 Room Air 11/06 1657 97.1 84 18 110/65 99 11/06 1230 98.4 88 18 132/63 96 Room Air 11/06 1225 98.4 88 18 132/63 96 Room Air Intake & Output 11/07 1600 11/07 0800 11/07 0000 11/06 1600 11/06 0800 11/06 0000 Intake Total 240 240 100 0 Output Total Balance 240 240 100 0 Intake, Oral 240 240 100 0 Patient 190 lb 190 lb Weight Weight Reported by Patient Reported by Patient Measurement Method Physical Exam: General: Nontoxic, no apparent distress. HEENT: Sclera and conjunctiva within normal limits, without xanthelasmas. Neck: Carotids 2+ without bruits. Respiratory: Scattered rhonchi, air movement is good, without accessory respiratory muscle use. Heart: Regular rate and rhythm, without murmurs, without JVD. Abdomen: Soft, nontender, no masses, normoactive bowel sounds. Extremities: Without clubbing, cyanosis, without edema. Neuro: Nonfocal exam, strength, 5 out of 5 Skin: Within normal limits without lesions. Psych: Mood and affect: Normal Current Medications: Current Medications Sig/Mary Start time Last Medication Dose Route Stop Time Status Admin Atorvastatin Calcium 40 MG 1700 11/06 1700 CAN PO Bisoprolol Fumarate 2.5 MG DAILY 11/07 1000 AC 11/07 PO 1020 Dabigatran 150 MG BID 11/07 1045 AC PO Dabigatran 150 MG BID 11/06 0400 DC 11/06 PO 2101 Duloxetine HCl 60 MG DAILY 11/06 1000 AC 11/07 PO 1020 Hydrochlorothiazide 12.5 MG DAILY 11/06 1000 AC 11/06 PO 0944 Levothyroxine Sodium 0.112 MG DAILY AC 11/06 0700 AC 11/07 PO 0550 Lorazepam 0 .STK-MED ONE 11/06 1625 DC PO Lorazepam 0.5 MG BID PRN 11/06 1615 AC 11/06 PO 11/13 1614 1621 Losartan Potassium 100 MG DAILY 11/06 1000 AC 11/07 PO 1021 Mirtazapine 30 MG QPM 11/06 2200 AC 11/06 PO 210 Results Last 48 Hrs of Labs/Mics: Laboratory Tests 11/07/16 1000: Alpha Fetoprotein Pending 11/07/16 0701: Sodium Pending, Potassium Pending, Chloride Pending, Carbon Dioxide Pending, Anion Gap Pending, BUN Pending, Creatinine Pending, BUN/Creatinine Ratio Pending , Total Bilirubin 0.9, Direct Bilirubin 0.4, AST 82 H, ALT 48, Alkaline Phosphatase 495 H, Total Protein 5.6 L, Albumin 2.9 L, CBC w Diff NO MAN DIFF REQ, RBC 4.18 L, MCV 84.4, MCH 27.9, RDW 15.8 H, MPV 8.7, Gran % 77.5 H, Lymphocytes % 12.3 L, Monocytes % 9.6 H, Eosinophils % 0.4, Basophils % 0.2, Absolute Granulocytes 7.0 H, Absolute Lymphocytes 1.1 L, Absolute Monocytes 0.9 H, Absolute Eosinophils 0, Absolute Basophils 0, PUBS MCHC 33.1 11/06/16 0856: Troponin I 0.05, Hepatitis A IgM Ab NONREACTIVE, Hep Bs Antigen NONREACTIVE, Hep B Core IgM Ab Conf NONREACTIVE, Hepatitis C Antibody NONREACTIVE 11/06/16 0328: Troponin I 0.10 11/05/16 2355: Urinalysis LIGHT H, Urine Color DAILY, Urine Clarity CLDY H, Urine pH 6.0, Ur Specific [place] 1.025, Urine Protein 30 H, Urine Ketones NEG, Urine Nitrite NEG, Urine Bilirubin NEG@ICTO, Urine Urobilinogen 4.0 H, Ur Leukocyte Esterase NEG, Ur Microscopic SEDIMENT EXAMINED, Urine WBC 1-3 H, Ur Epithelial Cells MOD H, Urine Bacteria MOD H, Urine Mucus MOD H, Urine Hemoglobin NEG, Urine Glucose NEG 11/05/162100: Anion Gap 14, Estimated GFR > 60, BUN/Creatinine Ratio 20.0, Glucose 133 H, Calcium 8.7, Total Bilirubin 1.0, AST 112 H, ALT 71 H, Alkaline Phosphatase 618 H, Troponin I < 0.01, Crm-V-Vcqxijeualv Pept 3260 H, Total Protein 6.8, Albumin 3.7, Globulin 3.1, Albumin/Globulin Ratio 1.2, Amylase 38, Lipase 67, TSH 7.840 H, Free T4 1.33, PT 15.5 H, INR 1.48 H, APTT 83 H, CBC w Diff NO MAN DIFF REQ, RBC 4.58, MCV 84.5, MCH 27.6, RDW 15.8 H, MPV 8.8, Gran % 79.3 H , Lymphocytes % 11.4 L, Monocytes % 8.4, Eosinophils % 0.6, Basophils % 0.3, Absolute Granulocytes 9.4 H, Absolute Lymphocytes 1.4, Absolute Monocytes 1.0 H, Absolute Eosinophils 0.1, Absolute Basophils 0, PUBS MCHC 32.7 L Assessment/Plan Assessment/Plan #1. Persistent atrial fibrillation on Pradaxa recent Holter demonstrating controlled ventricular response and no significant arrhythmias. #2. Hypertension stable #3. Dyspnea: Likely multifactorial, including CHF with diastolic dysfunction as well as COPD #4. History of obstructive sleep apnea noncompliant with CPAP #5. Hypothyroidism #6. Hyperlipidemia #7. Findings concerning for hepatic metastasis Dyspnea: Likely multifactorial, including COPD, sleep apnea without good CPAP compliance as well as acute on chronic congestive heart failure secondary to diastolic dysfunction (prior LVEF 60%). At this time, I would attempt to mild diuresis with IV Lasix. We may give an initial dose of 40 mg IV further titrate if needed. Hepatic lesions: The patient will require biopsy of the same, and this will necessitate holding her anticoagulation regimen. Her regimen of Pradaxa will be held 48 hours prior to the planned procedure. We may restart full anticoagulation following the procedure when safe from an interventional radiology standpoint. This may require further 3-5 days of maintaining off of anticoagulation. Continue telemetry? Yes
[2016-11-07 15:25] VITALS: BP 122/64
--- NOTE | 2016-11-07 17:41 | CT SCAN REPORT ---
EXAMINATION: CT HEAD WITHOUT AND WITH CONTRAST CLINICAL INFORMATION: History of lung carcinoma. Evaluate for intracranial metastatic disease. COMPARISON: No relevant prior imaging available. TECHNIQUE: Contiguous axial imaging was performed from the skull base to vertex before and after the administration of 100 mL of Optiray 320 intravenous contrast. DLP: 1216.79 mGy-cm FINDINGS: Postcontrast images reveal no abnormal intracranial mass or enhancement. There is no intracranial mass effect or midline shift. Lateral and third ventricles are normal. No hydrocephalus. Blackmon-white matter differentiation is preserved and there is no evidence of acute territorial infarct. No acute hemorrhage or abnormal extra-axial collection. The calvarium and skull base are intact. Mastoid air cells and middle ear cavities are well aerated. Visualized paranasal sinuses are well-aerated. IMPRESSION: Unremarkable CT scan of the head. No abnormal intracranial mass or enhancement.
[2016-11-07 22:50] VITALS: BP 108/60; BP 132/50
--- NOTE | 2016-11-08 07:08 | ECHOCARDIOGRAM REPORT ---
ANDREW DUBOSE Age: 76 : 1940 Gender: F Exam Date: 11/07/2016 19:43 Exam Location: [address] Ht (in): 62 Wt (lb): 190 BSA: 1.98 BP: 122 / 64 Ordering Physician: RACHEL JEROME MD Referring Physician: Linden Dye M.D. Technologist: Haley Horne [facility] Room Number: [id number] Indications: HYPERTENSION Rhythm: Sinus Technical Quality: fair FINDINGS Left Ventricle Normal size left ventricle. Left ventricular wall thickness mildly increased. Normal left ventricular ejection fraction estimated at 60-65%. Right Ventricle Right ventricle at upper limits of normal. Right Atrium Normal right atrial size. Left Atrium Mild left atrial dilatation. Mitral Valve Mild mitral annular calcification. Trace to mild mitral regurgitation. Aortic Valve Diffuse thickening (sclerosis) of the aortic valve cusps without reduced excursion. Tricuspid Valve Tricuspid valve is normal in structure and function. Mild-to- moderate tricuspid regurgitation. Right ventricular systolic pressure estimated to be elevated at60 mmHg. Pulmonic Valve Pulmonic valve not well visualized, grossly normal. Pericardium No pericardial effusion. Great Vessels Normal size aortic root. CONCLUSIONS Normal left and right venricular systolic function. Mild LVH. Dilated Left atrium. Probably severe Pulmonary hypertension. Jean Kerr M.D. (Electronically Signed) Final Date: 08 November 2016 07:08 MEASUREMENTS (Male / Female) Normal Values 2D ECHO LV Diastolic Diameter PLAX 3.0 cm 4.2 - 5.9 / 3.9 - 5.3 cm LV Systolic Diameter PLAX 1.9 cm 2.1 - 4.0 cm LV Fractional Shortening PLAX 36.7 % 25 - 46 % LV Ejection Fraction 2D Teich 68.1 % IVS Diastolic Thickness 1.3 cm LVPW Diastolic Thickness 1.3 cm LV Relative Wall Thickness 0.9 RV Internal Dim ED PLAX 3.1 cm 1.9 - 3.8 cm LVOT Diameter 2.0 cm Aortic Root Diameter 2.6 cm LA Systolic Diameter LX 4.0 cm 3.0 - 4.0 / 2.7 - 3.8 cm LA Volume 71.0 cm 18 - 58 / 22 - 52 cm Ascending Aorta Diameter 3.0 cm DOPPLER AV Peak Velocity 148.0 cm/s AV Peak Gradient 8.8 mmHg AV Mean Velocity 94.7 cm/s AV Mean Gradient 4.0 mmHg AV Velocity Time Integral 25.8 cm LVOT Peak Velocity 75.2 cm/s LVOT Peak Gradient 2.3 mmHg LVOT Mean Velocity 49.1 cm/s LVOT Mean Gradient 1.0 mmHg LVOT Velocity Time Integral 13.4 cm LVOT Stroke Volume 42.1 cm AV Area Cont Eq vti 1.6 cm AV Area Cont Eq pk 1.6 cm MV Peak Velocity 103.0 cm/s MV Peak Gradient 4.2 mmHg MV Mean Velocity 46.4 cm/s MV Mean Gradient 1.0 mmHg Mitral E Point Velocity 87.4 cm/s MV PHT Velocity 109.0 cm/s MV Deceleration Alcorn 663.0 cm/s MV Pressure Half Time 49.3 ms MV Area PHT 4.5 cm MV Deceleration Time 183.0 ms TR Peak Velocity 408.0 cm/s TR Peak Gradient 66.6 mmHg Right Atrial Pressure 5.0 mmHg Pulmonary Artery Systolic Pressu 71.6 mmHg Right Ventricular Systolic Press 71.6 mmHg PV Peak Velocity 98.1 cm/s PV Peak Gradient 3.8 mmHg PV Mean Velocity 58.6 cm/s PV Mean Gradient 2.0 mmHg PV Velocity Time Integral 15.6 cm LV E' Lateral Velocity 11.7 cm/s Mitral E to LV E' Lateral Ratio 7.5 LV E' Septal Velocity 9.8 cm/s Mitral E to LV E' Septal Ratio 9.0
--- NOTE | 2016-11-08 07:21 | PN- Housestaff ---
See Addendum Subjective Follow-up For: - Acute on chronic dyspnea on exertion 2/2 ABILIO vs diastolic CHF - Transaminitis 2/2 ? cancer - Hx of Afib on Pradaxa Tele-Events Since Last Visit: Not on monitor Subjective: Patient seen and examined at bedside. She states she gets very winded while ambulating out of bed. Denies any chest discomfort, palpitations, nausea, vomting. Echo was done yesterday that showed normal left ventricular ejection fraction estimated at 60-65%. A head CT was unremarkable, and showed no abnormal intrcranial mass or enhancement. Review of Systems Constitutional: Reports: weakness. Denies: chills, fever, malaise. EENTM: Denies: visual changes. Cardiovascular: Denies: chest pain, orthopena, palpitations, peripheral edema. Respiratory: Reports: short of breath. Denies: cough, hemoptysis, sputum production, wheezing. Gastrointestinal: Denies: abdominal pain, constipation, diarrhea, nausea, vomiting. Genitourinary: Denies: discharge, frequency, hematuria, pain, urgency. Musculoskeletal: Denies: back pain, joint swelling. Neurological/Psychological: Denies: headache, numbness, tingling, tremors. Objective Last 24 Hrs of Vital Signs/I&O Vital Signs Date Time Temp Pulse Resp B/P B/P Pulse O2 O2 Flow FiO2 Mean Ox Delivery Rate 11/07 2250 97.5 78 20 108/60 98 Room Air 11/07 2231 Room Air 11/07 1525 97.6 81 20 122/64 98 Room Air 11/07 1021 83 130/60 11/07 0728 97.4 83 20 130/60 95 Room Air Intake & Output 11/08 0800 11/08 0000 11/07 1600 Intake Total 375 240 Output Total 450 Balance -75 240 Intake, Oral 375 240 Output, Urine 450 Physical Exam General Appearance: Alert, Oriented X3, Cooperative HEENT: Atraumatic, PERRLA, EOMI, Mucous Membr. moist/pink Neck: Supple, No JVD, +2 Carotid Pulse wo Bruit, No LAD Cardiovascular: Normal S1, Normal S2, No Murmurs Lungs: Clear to Auscultation, Normal Air Movement Abdomen: Normal Bowel Sounds, Soft, No Tenderness Neurological: Normal Speech, Strength at 5/5 X4 Ext, Normal Tone, Sensation Intact, Cranial Nerves 3-12 NL, Reflexes 2+ Extremities: No Clubbing, No Cyanosis, No Edema, Normal Pulses, No Tenderness/ Swelling Vascular: Normal Pulses, Pulses Symmetrical Current Medications: Current Medications Sig/Mary Start time Last Medication Dose Route Stop Time Status Admin Bisoprolol Fumarate 2.5 MG DAILY 11/07 1000 AC 11/07 PO 1020 Dabigatran 150 MG BID 11/07 1045 AC 11/07 PO 11/09 0000 2127 Dabigatran 150 MG BID 11/06 0400 DC 11/06 PO 2101 Duloxetine HCl 60 MG DAILY 11/06 1000 AC 11/07 PO 1020 Hydrochlorothiazide 12.5 MG DAILY 11/06 1000 AC 11/07 PO 1220 Levothyroxine Sodium 0.112 MG DAILY AC 11/06 0700 AC 11/08 PO 0644 Lorazepam 0.5 MG BID PRN 11/06 1615 AC 11/07 PO 11/13 1614 1648 Losartan Potassium 100 MG DAILY 11/06 1000 AC 11/07 PO 1021 Mirtazapine 30 MG QPM 11/06 2200 AC 11/07 PO 2128 Patient Medication 1 ED .STK-MED ONE 11/07 1440 ID Teaching ED 11/07 1441 Last 24 Hrs of Lab/Sreedhar Results Last 24 Hrs of Labs/Mics: Laboratory Tests 11/08/16 0705: CBC w Diff Pending, WBC Pending, RBC Pending, Hgb Pending, Hct Pending, MCV Pending, MCH Pending, RDW Pending, Plt Count Pending, MPV Pending, PUBS MCHC Pending 11/07/16 1000: Alpha Fetoprotein Pending Orders ECHO Findings: FINDINGS Left Ventricle Normal size left ventricle. Left ventricular wall thickness mildly increased. Normal left ventricular ejection fraction estimated at 60-65%. Right Ventricle Right ventricle at upper limits of normal. Right Atrium Normal right atrial size. Left Atrium Mild left atrial dilatation. Mitral Valve Mild mitral annular calcification. Trace to mild mitral regurgitation. Aortic Valve Diffuse thickening (sclerosis) of the aortic valve cusps without reduced excursion. Tricuspid Valve Tricuspid valve is normal in structure and function. Mild-to- moderate tricuspid regurgitation. Right ventricular systolic pressure estimated to be elevated at60 mmHg. Pulmonic Valve Pulmonic valve not well visualized, grossly normal. Pericardium No pericardial effusion. Great Vessels Normal size aortic root. CONCLUSIONS Normal left and right venricular systolic function. Mild LVH. Dilated Left atrium. Probably severe Pulmonary hypertension. Jean Kerr M.D. (Electronically Signed) Final Date: 08 November 2016 07:08 Assessment/Plan Assessment: 76 year old female with past medical history of hypertension, hyperlipidemia, hypothyroidism, and atrial fibrillation on pradaxa presents with acute on chronic dyspnea. Vitals on admission BP: 146/92, RR: 20, pulse: 74, A/F, 97% RA. On physical exam she is alert and oriented x3, cooperative, and in NAD. HEENT revealed PERRLA, EOMI, moist mucous membranes, neck was supple, no JVD, cardiovascular exam revealed normal S1, S2, irregularly irregular rate. Respiratory exam revealed chest clear to auscultation bilaterally. Abdominal exam revealed normal bowel sounds, distended, with tenderness to palpation in epigastric area. Examination of lower extremity did not reveal any edema. Labs were pertinent leukocytosis with WBC: 11.8, H&H: 12.7/38.7, platelet count 246,000. Serum chemistries Na: 137, K: 4.0, normal anion gap: 14, BUN: 14, Cr: 0.7, LFTs revealed: AST/ALT: 112/71, alkaline phophatase: 618, troponin <0.01 CXR showed: No radiographic evidence of an acute cardiopulmonary process. EKG showed: atrial fibrillation, ? T wave inversions in precordial leads. She was admitted to Telelmetry given EKG changes and the following problems were addressed: # Acute on chronic dyspnea on exertion - This was thought to be multifactorial 2/2 heart failure vs ABILIO and noncompliance with CPAP vs pulmonary embolsim (of note she was on Pradxa for A. Fib and apparently a CTA was done by her primary hospital account manager in August 2016, which showed no evidence of PE). ACS was r/o with trops and EKG unremarkable. The EKGs from Dr. Sanderson office were obtained, and T-wave inversions were chronic. - Cardiology did not deem her SOB to be related to the heart, and suggested a pulm eval. - Pulmonary consult with Dr. Crawford was placed and she will see the patient today. Meanwhile TRC/Nebs as PRN. - CTA of chest wth IV contrast was done. The lungs are clear without focal opacity or suspicious-appearing nodules. There is a 1.1 cm short axis dimension precarinal lymph node anterior to the trachea, otherwise no pathologically enlarged nodes are seen. This small right-sided pleural effusion with minimal associated dependent atelectasis. #Transaminitis - ? liver cancer - US of Abdomen was done which showed multiple lesions in the liver. A follow up chest CT/Abdomen/Pelvis with IV contrast was done which showed innumerable heterogeneously enhancing mass lesions identified throughout both lobes of the liver with somewhat of a conglomerative appearance superiorly in the right lobe with the main focus measuring 15.0 x 11.9 cm. There are multiple small lymph nodes in the violet hepatis region, the largest interposed between the portal vein and IVC measuring 10 mm short axis dimension. There is no pathologically enlarged retroperitoneal nodes although multiple subcentimeter short axis dimension nodes are identified just inferior to the left renal vein anterior to the aorta. - GI consult was obtained, recommended an outpatient liver biospy next week. - IR was consulted for an outpatient liver biopsy that is scheduled for Saturday11/12/16 @ 8:00am. Patient will be NPO after MN on Saturday, and will undergo an US- guided liver biopsy as per Dr. Jane. Pradaxa will be on hold starting Saturday morning 11/09/16. - Hepatitis panel was negative. - Will send for alpha fetoprotein levels. - Spoke with Dr. Knowles. Patient will be provided his referral upon discharge for outpatient follow-up. #Atrial fibrillation on Pradaxa - Currently rate controlled - Patient is scheduled for a liver biopsy on Saturday and will recieve her last dose of Pradxa on 11/08/16. She will be off AC for atleast 72 hrs before the procedure and is to resume taking the medication 3-5 day post procedure as deemed safe by IR. -Meanwhile continue Bisoprolol, Losartan and HCTZ. #Hypothyroidism - TSH 7.80, with normal FT4 - 2/2 euthyroid? - Continue Synthroid 112mcg daily PO. - DVT Prophylaxis - On Pradaxa and ALPs - Diet Heart healthy - Code status - Full Code. Problem List: 1. Abnormal CT of liver 2. Liver masses 3. Afib Pain Ratin Pain Location: n/a Pain Goal: Remain pain free Pain Plan: ibuprofen Tomorrow's Labs & Rationales: n/a
[2016-11-08 07:36] VITALS: BP 122/68
[2016-11-08 08:53] LABS: ABSOLUTE BASOPHIL COUNT 0 /CUMM (0.0-0.2); ABSOLUTE EOSINOPHIL COUNT 0.1 /CUMM (0.0-0.7); ABSOLUTE GRANULOCYTE CT 7.5 /CUMM (1.4-6.5); ABSOLUTE LYMPH COUNT 1.2 /CUMM (1.2-3.4); BASOPHIL % 0.3 % (0.0-2.0); EOSINOPHIL % 0.6 % (0-5); GRANULOCYTE % 76.3 % (42.2-75.2); HEMATOCRIT 35.4 % (37-47); MEAN CORPUSCULAR HGB 27.8 PG (27.0-31.0); MEAN CORPUSCULAR HGB CONC 32.8 G/DL (33.0-37.0); MEAN CORPUSCULAR VOLUME 84.7 FL (81.0-99.0); MEAN PLATELET VOLUME 8.8 FL (7.4-10.4); PLATELET COUNT 227 /CUMM (130-400); RED BLOOD CELL CT 4.18 /CUMM (4.20-5.40); WHITE BLOOD CELL COUNT 9.8 /CUMM (4.8-10.8)
--- NOTE | 2016-11-08 09:16 | Discharge Summary ---
Visit Information Visit Dates Admission Date: 11/05/16 Discharge Date: 11/08/16 Hospital Course Course Attending Physician: FRANK MONTGOMERY MD Primary Care Physician: SHERLY CODY MD Consulting Request: 1 Consulting Specialty: Cardiology Consulting Request: 2 Consulting Specialty: Pulmonary Disease Consulting Request: 3 Consulting Specialty: Gastroenterology Hospital Course: 76 year old female with past medical history of hypertension, hyperlipidemia, hypothyroidism, and atrial fibrillation on pradaxa presents with acute on chronic dyspnea. Vitals on admission BP: 146/92, RR: 20, pulse: 74, A/F, 97% RA. On physical exam she is alert and oriented x3, cooperative, and in NAD. HEENT revealed PERRLA, EOMI, moist mucous membranes, neck was supple, no JVD, cardiovascular exam revealed normal S1, S2, irregularly irregular rate. Respiratory exam revealed chest clear to auscultation bilaterally. Abdominal exam revealed normal bowel sounds, distended, with tenderness to palpation in epigastric area. Examination of lower extremity did not reveal any edema. Labs were pertinent leukocytosis with WBC: 11.8, H&H: 12.7/38.7, platelet count 246,000. Serum chemistries Na: 137, K: 4.0, normal anion gap: 14, BUN: 14, Cr: 0.7, LFTs revealed: AST/ALT: 112/71, alkaline phophatase: 618, troponin <0.01 CXR showed: No radiographic evidence of an acute cardiopulmonary process. EKG showed: atrial fibrillation, ? T wave inversions in precordial leads. She was admitted to Telelmetry given EKG changes and the following problems were addressed: # Acute on chronic dyspnea on exertion This was thought to be multifactorial 2/2 diastolic heart failure, ABILIO ( noncompliance with CPAP), and pulmonary HTN with elevated pressures noted on Echo. ACS was r/o with trops and EKG unremarkable. The EKGs from Dr. Aldridge's office were obtained, and T-wave inversions were old. Cardiology, however, did not deem her SOB to be related to the heart, and suggested a pulmonary eval. CTA of chest wth IV contrast was done. The lungs are clear without focal opacity or suspicious-appearing nodules. There was a 1.1 cm short axis dimension precarinal lymph node anterior to the trachea, otherwise no pathologically enlarged nodes were seen. There was also small right-sided pleural effusion with minimal associated dependent atelectasis. Patient is to have out patient pulmonary eval and has an appointment with Dr. Castañeda on 11/14/16. #Transaminitis - ? liver cancer Patient had transaminitis on admission. An US of Abdomen was done which showed multiple lesions in the liver. A follow up chest CT/Abdomen/Pelvis with IV contrast was done which showed innumerable heterogeneously enhancing mass lesions identified throughout both lobes of the liver with somewhat of a conglomerative appearance superiorly in the right lobe with the main focus measuring 15.0 x 11.9 cm. There were multiple small lymph nodes in the violet hepatis region, the largest interposed between the portal vein and IVC measuring 10 mm short axis dimension. There was no pathologically enlarged retroperitoneal nodes although multiple subcentimeter short axis dimension nodes were identified just inferior to the left renal vein anterior to the aorta. GI consult was obtained, who recommended an outpatient liver biospy. IR was consulted for an outpatient liver biopsy that is scheduled for Saturday11/12/16 @ 8:00am. Patient will be NPO after MN on Saturday, and will undergo an US- guided liver biopsy as per Dr. Jane. Pradaxa will be on hold starting Saturday morning 11/09/16. Of note her hepatitis panel was negative. Alpha fetoprotein level was sent and is pending. Spoke with Dr. Knowles, given concern for cancer, and patient will be provided his referral upon discharge for outpatient follow-up. She will follow up with Dr. Gordon for results of her biopsy. #Atrial fibrillation on Pradaxa Currently rate controlled. Patient is scheduled for a liver biopsy on Saturday and will recieve her last dose of Pradxa on 11/08/16. She will be off AC for atleast 72 hrs before the procedure and is to resume taking the medication 3-5 day post procedure as deemed safe by IR. Meanwhile she is to continue Bisoprolol, Losartan and HCTZ. #Hypothyroidism - TSH 7.80, with normal FT4. This was thought to be 2/2 euthyroid? She was continued on synthroid 112mcg daily PO. She should have followup TFTs in about 2 weeks, and her levothryoxine adjusted. Allergies: Coded Allergies: NO KNOWN ALLERGIES (10/07/16) Significant Procedures: SERVICE DATE: 11/05/16-2056 EXAM TYPE: RAD - XRY-CHEST XRAY, PA AND LATERAL FINDINGS: The lungs are mildly hyperexpanded. No focal consolidation or overt pulmonary edema is appreciated. Mild cardiomegaly is approximately stable. There are no pleural effusions. Degenerative changes are noted throughout the thoracic spine. IMPRESSION: No radiographic evidence of an acute cardiopulmonary process. SERVICE DATE: 11/06/16- EXAM TYPE: US - US-LIMITED ABDOMEN FINDINGS: PANCREAS: Normal. LIVER: Liver parenchyma appears diffusely hyperechoic -- a finding often due to steatosis. Within the liver, there are multiple solid, hypoechoic masses. One of the masses in the left lobe measured by the cardiovascular radiologic technologist is 1.6 x 1.3 x 1.7 cm and one of the masses measured in the right lobe is 2 x 1.9 x 2.3 cm. GALLBLADDER: Normal. The gallbladder is physiologically distended without evidence of stones, sludge, polyps, wall thickening or pericholecystic fluid. COMMON BILE DUCT: Normal in caliber measuring 0.4 cm in diameter. RIGHT KIDNEY: The right kidney measures 12.5 cm in length and has normal cortical thickness and echotexture. No hydronephrosis or nephrolithiasis. 2.7 x 1.8 x 2.5 cm simple cortical cyst of the upper pole. At the mid to lower pole, there is a 8.5 x 8.2 x 8 cm simple cyst. FREE FLUID: None. IMPRESSION: 1. Findings consistent with metastatic disease of the liver (uncertain primary). Further workup is advised. 2. Gallbladder is normal. 3. The right kidney has simple cysts, one measuring up to 2.7 cm and another measuring up to 8.5 cm. SERVICE DATE: 11/06/16- EXAM TYPE: CAT - CT ABD & PELVIS W IV CONTRAST; CT CHEST W IV CONTRAST FINDINGS: CHEST: LUNG: The lungs are clear without focal opacity or suspicious-appearing nodules to suggest a primary or metastatic malignancy to the chest. MEDIASTINUM: Thyroid gland is not well seen likely severely atrophic or previously removed. There is a 1.1 cm short axis dimension precarinal lymph node anterior to the trachea, otherwise no pathologically enlarged nodes are seen. There is mild atherosclerotic aortic artery calcification. No aneurysm. The heart does not appear significantly enlarged. The right atrium appears mildly enlarged. PERICARDIUM/PLEURA: There is a small right-sided pleural effusion with minimal associated dependent atelectasis. CHEST WALL/AXILLA: Unremarkable. ABDOMEN/PELVIS: LIVER, GALLBLADDER, BILIARY TREE: There are innumerable heterogeneously enhancing mass lesions identified throughout both lobes of the liver with somewhat of a conglomerative appearance superiorly in the right lobe with the main focus measuring 15.0 x 11.9 cm in maximal dimensions on image 46 of series 2. No underlying cirrhotic changes are suggested. Gallbladder and biliary tree appear unremarkable. PANCREAS: Mild fatty atrophy, no focal masses. SPLEEN: Unremarkable. ADRENAL GLANDS AND KIDNEYS: There are multiple bilateral renal cysts, the largest exophytic off the midpole of the left kidney measuring 8.7 cm maximal dimension. No suspicious-appearing solid renal masses are seen. The adrenal glands appear unremarkable. URETERS AND BLADDER: Unremarkable. BOWEL LOOPS: Fairly extensive sigmoid colon diverticulosis without evidence of acute diverticulitis. Otherwise unremarkable, appendix is not identified. LYMPHOVASCULAR STRUCTURES: There are multiple small lymph nodes in the violet hepatis region, the largest interposed between the portal vein and IVC measuring 10 mm short axis dimension. There is no pathologically enlarged retroperitoneal nodes although multiple subcentimeter short axis dimension nodes are identified just inferior to the left renal vein anterior to the aorta. PERITONEAL CAVITY: There is a small amount of intraperitoneal free fluid in the deep pelvis. There is no evidence of free air. PELVIC VISCERA: The uterus is not identified, likely previously removed. Adnexal regions appear unremarkable. BONES: No aggressive osseous lesions to suggest metastatic disease. IMPRESSION: 1. Multiple hepatic lesions remain indeterminate in etiology most likely metastases although a central primary malignancy in the right lobe is not entirely excluded. Biopsy is recommended. 2. Multiple small violet hepatis and retroperitoneal lymph nodes with a single mildly enlarged mediastinal lymph node indeterminate in etiology. 3. There is no evidence of widespread metastatic disease or the primary lesion outside of the liver. 4. There is intraperitoneal free fluid in the deep pelvis of uncertain etiology. 5. Left-sided colonic diverticulosis. SERVICE DATE: 11/07/16- EXAM TYPE: CAT - CT HEAD W&WO IV CONTRAST FINDINGS: Postcontrast images reveal no abnormal intracranial mass or enhancement. There is no intracranial mass effect or midline shift. Lateral and third ventricles are normal. No hydrocephalus. Blackmon-white matter differentiation is preserved and there is no evidence of acute territorial infarct. No acute hemorrhage or abnormal extra-axial collection. The calvarium and skull base are intact. Mastoid air cells and middle ear cavities are well aerated. Visualized paranasal sinuses are well-aerated. IMPRESSION: Unremarkable CT scan of the head. No abnormal intracranial mass or enhancement. SERVICE DATE: 11/07/16 EXAM TYPE: CARD - ECHOCARDIOGRAM FINDINGS Left Ventricle Normal size left ventricle. Left ventricular wall thickness mildly increased. Normal left ventricular ejection fraction estimated at 60-65%. Right Ventricle Right ventricle at upper limits of normal. Right Atrium Normal right atrial size. Left Atrium Mild left atrial dilatation. Mitral Valve Mild mitral annular calcification. Trace to mild mitral regurgitation. Aortic Valve Diffuse thickening (sclerosis) of the aortic valve cusps without reduced excursion. Tricuspid Valve Tricuspid valve is normal in structure and function. Mild-to- moderate tricuspid regurgitation. Right ventricular systolic pressure estimated to be elevated at60 mmHg. Pulmonic Valve Pulmonic valve not well visualized, grossly normal. Pericardium No pericardial effusion. Great Vessels Normal size aortic root. CONCLUSIONS Normal left and right venricular systolic function. Mild LVH. Dilated Left atrium. Probably severe Pulmonary hypertension. Cheyanne Kerr M.D. (Electronically Signed) Final Date: 08 November 2016 07:08 MEASUREMENTS (Male / Female) Normal Values 2D ECHO LV Diastolic Diameter PLAX 3.0 cm 4.2 - 5.9 / 3.9 - 5.3 cm LV Systolic Diameter PLAX 1.9 cm 2.1 - 4.0 cm LV Fractional Shortening PLAX 36.7 % 25 - 46 % LV Ejection Fraction 2D Teich 68.1 % IVS Diastolic Thickness 1.3 cm LVPW Diastolic Thickness 1.3 cm LV Relative Wall Thickness 0.9 RV Internal Dim ED PLAX 3.1 cm 1.9 - 3.8 cm LVOT Diameter 2.0 cm Aortic Root Diameter 2.6 cm LA Systolic Diameter LX 4.0 cm 3.0 - 4.0 / 2.7 - 3.8 cm LA Volume 71.0 cm 18 - 58 / 22 - 52 cm Ascending Aorta Diameter 3.0 cm DOPPLER AV Peak Velocity 148.0 cm/s AV Peak Gradient 8.8 mmHg AV Mean Velocity 94.7 cm/s AV Mean Gradient 4.0 mmHg AV Velocity Time Integral 25.8 cm LVOT Peak Velocity 75.2 cm/s LVOT Peak Gradient 2.3 mmHg LVOT Mean Velocity 49.1 cm/s LVOT Mean Gradient 1.0 mmHg LVOT Velocity Time Integral 13.4 cm LVOT Stroke Volume 42.1 cm AV Area Cont Eq vti 1.6 cm AV Area Cont Eq pk 1.6 cm MV Peak Velocity 103.0 cm/s MV Peak Gradient 4.2 mmHg MV Mean Velocity 46.4 cm/s MV Mean Gradient 1.0 mmHg Mitral E Point Velocity 87.4 cm/s MV PHT Velocity 109.0 cm/s MV Deceleration [place] 663.0 cm/s MV Pressure Half Time 49.3 ms MV Area PHT 4.5 cm MV Deceleration Time 183.0 ms TR Peak Velocity 408.0 cm/s TR Peak Gradient 66.6 mmHg Right Atrial Pressure 5.0 mmHg Pulmonary Artery Systolic Pressu 71.6 mmHg Right Ventricular Systolic Press 71.6 mmHg PV Peak Velocity 98.1 cm/s PV Peak Gradient 3.8 mmHg PV Mean Velocity 58.6 cm/s PV Mean Gradient 2.0 mmHg PV Velocity Time Integral 15.6 cm LV E' Lateral Velocity 11.7 cm/s Mitral E to LV E' Lateral Ratio 7.5 LV E' Septal Velocity 9.8 cm/s Mitral E to LV E' Septal Ratio 9.0 Disposition Summary Disposition Principal Diagnosis: - Acute on chronic dyspnea on exertion (multifactorial) secondary to ABILIO, pulmonary hypertension and diastolic CHF - Transaminitis in the setting of multiple lesions in liver - unknown primary - Hx of Afib on Pradaxa Additional Diagnosis: Hypothyroidism Discharge Disposition: home or self care Discharge Instructions General Discharge Information Code Status: Full Code Patient's Diet: Heart healthy Patient's Activity: As tolerated Follow-Up Instructions/Appts: - Please follow up with your primary care physician in one week. - Please follow up with your GI doctor for results of your liver biopsy. - You have an US guided liver biopsy on Saturday11/12/2016 @ 08:00. Please ensure that you are at [facility] for the procedure. - You are on Pradaxa which is to be HELD starting Saturday morning 11/12/16 until 3-5 days after the procedure as per IR. please resume taking Pradaxa as per interventional readiologist's instruction. - You will not be eating or drinking anything after midnight on Saturday prior to the procedure. - Please follow up with your oncologist within two weeks of discharge following results of your liver biopsy. - Please follow up with your saw cleaner next week as scheduled for further evaluation of your shortness of breath and possible pulmonary hypertension. Medications at Discharge Discharge Medications: Continue taking these medications: Ferrous Sulfate (Ferrous Sulfate) 325 MG TABLET 1 Tablet ORAL DAILY Comments: NOT TAKEN IN HOSPITAL Bisoprolol Fumarate/Hctz (Bisoprolol-Hctz 2.5-6.25 MG Tb) 1 EACH TABLET 1 Tablet ORAL DAILY Comments: GIVEN 11/08/16 @ 1000 AM Duloxetine HCl (Cymbalta) 60 MG CAPSULE.DR 1 Capsule ORAL DAILY Comments: GIVEN 11/08/16 @ 1000 AM Rosuvastatin Calcium (Crestor) 10 MG TABLET 1 Tablet ORAL DAILY Comments: NOT GIVEN IN HOSPITAL Levothyroxine Sodium (Levothyroxine Sodium) 112 MCG TABLET 1 Tablet ORAL DAILY Comments: GIVEN 11/08/16 @ 0645 AM Losartan/Hydrochlorothiazide (Losartan-Hctz 100-12.5 MG Tab) 1 EACH TABLET 1 Tablet ORAL Every night Comments: GIVEN 10/1316 @ 1000 AM Bimatoprost (Lumigan) 2.5 ML DROPS 1 Drop In the eye Every night Comments: NOT TAKEN IN HOSPITAL Hydrocodone/Acetaminophen (Hydrocodon-Acetaminophen 5-325) 1 EACH TABLET 1 Tablet ORAL as needed for PAIN Comments: NOT GIVEN IN HOSPITAL Dabigatran Etexilate Mesylate (Pradaxa 150 MG) 150 MG CAPSULE 1 Capsule ORAL TWICE DAILY Instructions: Please do NOT take this medication starting Saturday11/09/16 through 11/12/16. Please resume this medication as per interventional radiologist's instructions. Comments: GIVEN 11/08/16 @ 1000 AM. LAST DOSE TO BE TAKEN 11/08/16 AT BEDTIME Mirtazapine (Mirtazapine) 30 MG TABLET 1 Tablet ORAL Every night Qty = 30 Comments: GIVEN 11/07/16 @ 930 PM Copies To: IZAIAH BEE,CHEYANNE Long; KELVIN BEE,BRANT Mosley; MIRLANDE BEE,YOLI; JOHN BEE,TATA Mandujano MD Review Statement Documenting Attending: FRANK MONTGOMERY MD
--- NOTE | 2016-11-08 09:32 | PN- Cardiology ---
Subjective Subjective: Patient is not on telemetry as a general medical patient Patient claims to feel well at rest but bitterly complains of shortness of breath on exertion. Objective Vital Signs and I&Os Vital Signs Date Time Temp Pulse Resp B/P B/P Pulse O2 O2 Flow FiO2 Mean Ox Delivery Rate 11/08 0736 97.9 83 20 122/68 96 Room Air 11/07 2250 97.5 78 20 108/60 98 Room Air 11/07 2231 Room Air 11/07 1525 97.6 81 20 122/64 98 Room Air 11/07 1021 83 130/60 Intake & Output 11/08 1600 11/08 0800 11/08 0000 11/07 1600 11/07 0800 11/07 0000 Intake Total 375 240 240 240 Output Total 450 Balance -75 240 240 240 Intake, Oral 375 240 240 240 Output, Urine 450 Physical Exam: Gen. exam patient comfortable laying in bed Head normocephalic atraumatic Eyes sclera anicteric conjunctiva showed no pallor X of muscle were normal Neck no definite jugular venous distention no thyroid masses no palpable nodes Chest lungs scattered wheezes bilaterally Heart regular rhythm with a grade 1 to 2/6 systolic murmur abdomen protuberant bowel sounds normal soft nontender extremities no clubbing cyanosis or edema Neurological no gross motor or sensory deficits Current Medications: Current Medications Sig/Mary Start time Last Medication Dose Route Stop Time Status Admin Bisoprolol Fumarate 2.5 MG DAILY 11/07 1000 AC 11/07 PO 1020 Dabigatran 150 MG BID 11/07 1045 AC 11/07 PO 11/09 0000 2127 Duloxetine HCl 60 MG DAILY 11/06 1000 AC 11/07 PO 1020 Hydrochlorothiazide 12.5 MG DAILY 11/06 1000 AC 11/07 PO 1220 Levothyroxine Sodium 0.112 MG DAILY AC 11/06 0700 AC 11/08 PO 0644 Lorazepam 0.5 MG BID PRN 11/06 1615 AC 11/07 PO 11/13 1614 1648 Losartan Potassium 100 MG DAILY 11/06 1000 AC 11/07 PO 1021 Mirtazapine 30 MG QPM 11/06 2200 AC 11/07 PO 2128 Patient Medication 1 ED .STK-MED ONE 11/07 1440 DC Teaching ED 11/07 1441 Results Last 48 Hrs of Labs/Mics: Laboratory Tests 11/08/16 0705: CBC w Diff NO MAN DIFF REQ, RBC 4.18 L, MCV 84.7, MCH 27.8, RDW 16.0 H, MPV 8.8, Gran % 76.3 H, Lymphocytes % 12.8 L, Monocytes % 10.0 H, Eosinophils % 0.6, Basophils % 0.3, Absolute Granulocytes 7.5 H, Absolute Lymphocytes 1.2, Absolute Monocytes 1.0 H, Absolute Eosinophils 0.1, Absolute Basophils 0, PUBS MCHC 32.8 L 11/07/16 1000: Alpha Fetoprotein Pending 11/07/16 0701: Anion Gap 11, Estimated GFR > 60, BUN/Creatinine Ratio 25.0, Total Bilirubin 0.9 , Direct Bilirubin 0.4, AST 82 H, ALT 48, Alkaline Phosphatase 495 H, Total Protein 5.6 L, Albumin 2.9 L, CBC w Diff NO MAN DIFF REQ, RBC 4.18 L, MCV 84.4, MCH 27.9, RDW 15.8 H, MPV 8.7, Gran % 77.5 H, Lymphocytes % 12.3 L, Monocytes % 9.6 H, Eosinophils % 0.4, Basophils % 0.2, Absolute Granulocytes 7.0 H, Absolute Lymphocytes 1.1 L, Absolute Monocytes 0.9 H, Absolute Eosinophils 0, Absolute Basophils 0, PUBS MCHC 33.1 Assessment/Plan Assessment/Plan In summary this 76-year-old female has the following problems #1. Persistent atrial fibrillation on Pradaxa recent Holter demonstrating controlled ventricular response and no significant arrhythmias. #2. Hypertension stable #3. Dyspnea: Likely multifactorial, including CHF with diastolic dysfunction as well as COPD #4. History of obstructive sleep apnea noncompliant with CPAP #5. Hypothyroidism #6. Hyperlipidemia #7. Findings concerning for hepatic metastasis Pradaxa is on hold pending liver biopsy. Echocardiogram suggests severe pulmonary hypertension. His symptoms of shortness of breath significant on exertion. Prior CTA was reportedly negative for parenchymal lung disease. Pulmonary consult is pending. Patient may need right heart cardiac catheterization to confirm vascular pressures. Continue telemetry? Not applicable
[2016-11-08 10:11] VITALS: BP 122/68
--- NOTE | 2016-11-08 11:15 | Patient Discharge Instructions ---
Discharge Instructions General Discharge Information You were seen/treated for: - Acute on chronic dyspnea 2/2 ABILIO on COPD vs diastolic HF - Lesions in liver - unknown primary Special Instructions: - Please follow up with your primary care physician in one week. - Please follow up with your GI doctor for results of your liver biopsy. - You have an US guided liver biopsy on Saturday11/12/2016 @ 08:00. Please ensure that you are at [facility] for the procedure. - You are on Pradaxa which is to be HELD starting Saturday morning 11/12/16 until 3-5 days after the procedure as per IR. please resume taking Pradaxa as per interventional readiologist's instruction. - You will not be eating or drinking anything after midnight on Saturday prior to the procedure. - Please follow up with your oncologist within two weeks of discharge following results of your liver biopsy. - Please follow up with your delivery driver/customer service next week as scheduled for further evaluation of your shortness of breath and possible pulmonary hypertension. Diet Recommended Diet: Heart Healthy Activity Activity Self Limited: Yes Acute Coronary Syndrome Inclusion Criteria At DC or during hospital stay patient has or had the following: ACS DIAGNOSIS No Discharge Core Measures Meds if any: Prescribed or Continued at Discharge Meds if any: NOT Prescribed or Continued at Discharge Congestive Heart Failure Inclusion Criteria At DC or during hospital stay patient has or had the following: CHF DIAGNOSIS No Discharge Core Measures Meds if any: Prescribed or Continued at Discharge Meds if any: NOT Prescribed or Continued at Discharge Cerebrovascular accident Inclusion Criteria At DC or during hospital stay patient has or had the following: CVA/TIA Diagnosis No Discharge Core Measures Meds if any: Prescribed or Continued at Discharge Meds if any: NOT Prescribed or Continued at Discharge Venous thromboembolism Inclusion Criteria VTE Diagnosis No VTE Type NONE VTE Confirmed by (Test) NONE Discharge Core Measures - Per Current guidelines, there needs to be overlap - treatment for the first 5 days of Warfarin therapy. - If discharged on Warfarin prior to 5 days of - overlap therapy, the patient will need to be - assessed for post discharge needs including - *Post discharge parental anticoagulation - *Warfarin and/or parental anticoagulation education - *Follow up date to check INR post discharge At least 5 days overlap therapy as Inpatient No Meds if any: Prescribed or Continued at Discharge Note: Overlap Therapy is Warfarin and Anticoagulant Meds if any: NOT Prescribed or Continued at Discharge Meds if any: NOT Prescribed or Continued at Discharge
== END 2016-11-08 12:46 | DRG 292 ==
LOC: ERH 20:12 → ERHI 23:24 → 1NO 23:24 → ERHI 11-06 07:39 → ENRESERV 11-06 15:10 → ENTRNSPT 11-06 16:51 → 1NO 11-06 17:15 → CMPTRNSPT 11-06 17:25 → DELTRNSPT 11-06 17:35 → 1NO 11-08 09:04 → ENPENDDIS 11-08 11:21 → 1NO 11-08 12:46
PROVIDERS: Emergency Medicine; Internal Medicine Infectious Disease; ADMIT Internal Medicine
DX: I11.0 Hypertensive heart disease with heart failure (principal); I48.1 Persistent atrial fibrillation; C78.7 Secondary malignant neoplasm of liver and intrahepatic bile duct; I27.2 Other secondary pulmonary hypertension; I50.33 Acute on chronic diastolic (congestive) heart failure; Z79.01 Long term (current) use of anticoagulants; G47.33 Obstructive sleep apnea (adult) (pediatric); Z91.19 Patient's noncompliance with other medical treatment and regimen; R61 Generalized hyperhidrosis; E78.5 Hyperlipidemia, unspecified; R74.0 Nonspecific elevation of levels of transaminase and lactic acid dehydrogenase [LDH]; R09.02 Hypoxemia; Z87.891 Personal history of nicotine dependence; M19.90 Unspecified osteoarthritis, unspecified site; F32.9 Major depressive disorder, single episode, unspecified; I34.1 Nonrheumatic mitral (valve) prolapse; Z96.651 Presence of right artificial knee joint; E89.0 Postprocedural hypothyroidism
CPT/HCPCS: 1NSP; ERO; 36415; 74177; 81001; 82436; 87086; 93005; 93010; 93306; 97110-GO; 97116-GO; 97161-GP; J3490